=== PATIENT | female | born 1990 | race Caucasian/White ===

== ENCOUNTER 2021-12-01 16:49 | Emergency (ER) | payer MEDICAID, SELFPAY ==
[2021-12-01 16:50] VITALS: BP 140/92; PULSE 107; RESP 20; TEMP 36.6; O2SAT 96; BMI 36.3
--- NOTE | 2021-12-01 17:01 | CT_ITS ---
PROCEDURE INFORMATION: Exam: CTA Chest With Contrast Exam date and time: 12/01/2021 5:51 PM Age: 31 years old Clinical indication: Dyspnea; Additional info: Dyspnea HX of clots TECHNIQUE: Imaging protocol: Computed tomographic angiography of the chest with contrast. 3D rendering (Not supervised by radiologist): MIP and/or 3D reconstructed images were created by the technologist. Total images: 309 Radiation optimization: All CT scans at this facility use at least one of these dose optimization techniques: automated exposure control; mA and/or kV adjustment per patient size (includes targeted exams where dose is matched to clinical indication); or iterative reconstruction. Contrast material: ISOVUE 370; Contrast volume: 70 ml; Contrast route: INTRAVENOUS (IV); COMPARISON: No relevant prior studies available. FINDINGS: Pulmonary arteries: No large central pulmonary emboli were identified. Assessment of the segmental and subsegmental branches at multiple levels was nondiagnostic due to gross respiratory motion. Significant motion artifact also projects in the right main pulmonary artery distribution. Aorta: The aorta enhances appropriately without evidence of dissection or aneurysm. No mediastinal hematoma. Thyroid: The visualized thyroid gland demonstrates no gross abnormality. Lungs: No acute tracheobronchial abnormalities. No gross pulmonary infiltrates or edema pattern. Mild atelectasis in the lung bases. 3.5 mm juxtapleural pulmonary nodule in the anterolateral left upper lobe on series 5, image 39 without measurable calcification. 2.5 mm juxtapleural pulmonary nodule in the lateral lingula on image 66 without measurable calcification. If patient does not have known cancer, follow up should be based on clinical information because of the low risk of cancer in this age group. (Brooks et al., Fleischner Society, 2017). Pleural spaces: No pleural effusion. No pneumothorax. Heart: Heart size normal. 2.5 x 1.9 x 1.7 cm cyst at the rightward cardiophrenic angle demonstrating simple features, consistent with a developmental pericardial cyst. No signs of hemorrhage or superinfection. No pericardial effusion. Mediastinal space: The esophagus is largely contracted but demonstrates no gross abnormality. Lymph nodes: No supraclavicular or axillary adenopathy. No mediastinal or hilar adenopathy. Bones/joints: No acute osseous abnormalities are identified. Soft tissues: The soft tissues of the chest wall demonstrate no acute abnormality. Other findings: Visualized upper abdominal structures are unremarkable. IMPRESSION: 1. No large central pulmonary emboli are identified. Assessment of the peripheral segmental and subsegmental branch vessels at multiple levels was nondiagnostic due to gross respiratory motion. 2. No acute process is evident. 3. 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 4. There are 2 small pulmonary nodules present, largest is 3.5 mm. Please see recommendations above.
--- NOTE | 2021-12-01 17:09 | CA_ITS ---
PROCEDURE INFORMATION: Exam: US Duplex Right Lower Extremity Veins, Limited Exam date and time: 12/01/2021 5:31 PM Age: 31 years old Clinical indication: Pain; Leg, upper; Right; Additional info: Right leg pain, no trauma , HX of dvts and HX of pes TECHNIQUE: Imaging protocol: Real-time Duplex ultrasound of the Right Lower Extremity with 2-D hernadez scale, color Doppler flow and spectral waveform analysis with image documentation. Limited exam was focused on the right lower extremity veins. Total images: 122 COMPARISON: No relevant prior studies available. FINDINGS: Right deep veins: The right common femoral artery demonstrates color filling and venous waveforms with compressibility and no evidence of thrombosis. Limited femoral vein documentation. Transverse color Doppler images in the proximal segment demonstrate color filling in this region. Demonstration of compressibility was limited. The mid femoral vein segment demonstrates appropriate compressibility and color filling. The distal femoral vein segment documentation was limited. Popliteal vein documentation was limited. No technologist preliminary report was made available for correlation, however subsequent text messages to the technologist by operations it support technician Lu Mackenzie provided a preliminary tech report at 7:01 p.m. indicating that they felt that there was DVT present in the proximal popliteal vein. The cine transverse images are suspicious for incomplete compressibility in this segment. Right superficial veins: The greater saphenous vein demonstrates color filling with compressibility and no evidence of thrombosis. Soft tissues: Unremarkable. IMPRESSION: 1. Suspected nonocclusive short segment deep venous thrombosis in the superior popliteal vein distribution. 2. THIS REPORT CONTAINS FINDINGS THAT MAY BE CRITICAL TO PATIENT CARE. The findings were verbally communicated via telephone conference with Rhonda Snow at 8:17 PM EDT on 12/01/2021. The findings were acknowledged and understood.
--- NOTE | 2021-12-01 17:16 | HMH.EDGENADL ---
ED Disposition Clinical Impression: DVT (deep venous thrombosis) Disposition: Home, Self-Care Condition on Discharge: Good Instructions: Deep Vein Thrombosis Additional Instructions: Please follow-up with your primary care physician in 2 to 3 days for further management. Please take the apixiban as prescribed. You have been provided Dr. Corral's number for outpatient management please keep that appointment and she will need follow-up labs to monitor your coags. Please return for any concerning symptoms of bleeding, chest pain, difficulty breathing or any other concerning symptoms. Prescriptions: Apixaban [Eliquis] 10 mg PO BID #60 tab Apixaban [Eliquis] 5 mg PO BID #60 tab Prescription Printed Referrals: Provider,Referral, [Primary Care Provider] - - Critical Care Critical Care Time: No Attestation: On 12/01/21, the high probability of a clinically significant, sudden or life threatening deterioration of the following system(s) required my full and direct attention, intervention and personal management. The time I documented below is in addition to time spent performing reported procedures but includes the following listed in this critical care notation. Medical Decision Making - Medical Records Medical records reviewed: Yes: I reviewed the patient's medical records. - Vinny Inquiry Pt receiving controlled substance: No Vital Signs: 12/01/21 16:50 12/01/21 17:30 12/01/21 20:23 Temperature 98 F 98.0 F Temperature Source Oral Oral Pulse Rate 102 H 75 Pulse Rate [Radial] 107 H Respiratory Rate 20 20 20 Blood Pressure 148/78 H 130/77 Blood Pressure [Right Arm] 140/92 H Blood Pressure Mean [Right Arm] 108 Blood Pressure Position Sitting Blood Pressure Position [Right Arm] Sitting 02 Sat by Pulse Oximetry 96 96 Oxygen Delivery Method Room Air Room Air Room Air - Lab Data Lab results reviewed: Yes: I reviewed the patient's lab results. Lab Results 12/01/21 17:23: WBC 10.3, RBC 4.67, Hgb 15.5, Hct 46.1, MCV 98.8, MCH 33.2 H, MCHC 33.6, RDW 12.9, Plt Count 308, MPV 7.7, Neut % (Auto) 56.6, Lymph % (Auto) 34.9, [place] % (Auto) 4.0, Eos % (Auto) 3.5, Baso % (Auto) 0.8, Neut # (Auto) 5.8, Lymph # (Auto) 3.6, [place] # (Auto) 0.4, Eos # (Auto) 0.4, Baso # (Auto) 0.1 12/01/21 17:23: PT 12.5, INR 1.12 H 12/01/21 17:23: Sodium 139, Potassium 4.0, Chloride 106, Carbon Dioxide 28, Anion Gap 9.0, BUN 5 L, Creatinine 0.80, Estimated Creat Clear 201, Estimated GFR 84, Est GFR ( Amer) 101, Glucose 98, Calcium 8.7, Total Bilirubin 0.5, AST 20, ALT 12, Alkaline Phosphatase 54, Total Protein 7.2, Albumin 4.1, Globulin 3.1, Albumin/Globulin Ratio 1.3 12/01/21 17:23: Serum HCG, Qual Negative 12/01/21 17:23: APTT 28.1 Result diagrams: 12/01/21 17:23 12/01/21 17:23 Orders (Tests/Meds): ED MEDICATIONS Discontinued Medications Generic Name Dose Route Start Last Admin Trade Name Freq PRN Reason Stop Dose Admin Apixaban 5 mg 12/01/21 21:00 12/01/21 20:40 Apixaban 5mg Tablet PO 12/31/21 20:59 Not Given BID LOUIS Apixaban 10 mg 12/01/21 20:45 12/01/21 20:41 Apixaban 5mg Tablet PO 12/31/21 20:44 10 mg BID LOUIS Administration Iopamidol 70 ml 12/01/21 17:54 12/01/21 17:55 Iopamidol-370 (76%);100ml Bottle IV 12/01/21 17:55 70 ml ONCE ONE Administration Sodium Chloride 40 ml 12/01/21 17:54 12/01/21 17:54 0.9 % Sodium Chloride 50 Ml Vial IV 12/01/21 17:55 40 ml ONCE ONE Administration Sodium Chloride 10 ml 12/01/21 17:54 12/01/21 17:54 Sodium Chloride 0.9% 10ml Syr (Rad Only) IV 12/01/21 17:55 10 ml ONCE ONE Administration Medical Decision Narrative: Mrs. Aleman is a 31-year-old female with past medical history for DVTs, IVC filter, who presents to the emergency department with right leg pain for the last few days. Patient is neurovascularly intact on arrival and hemodynamically stable. Physical exam remarkable for well-appearing female
[2021-12-01 17:30] VITALS: BP 148/78; PULSE 102; RESP 20; O2SAT 96
[2021-12-01 17:33] LABS: Basophils # 0.1 K/mm3 (0-0.2); Basophils % 0.8 % (0.1-2.0); Eosinophils # 0.4 K/mm3 (0.0-0.4); Eosinophils % 3.5 % (0.1-12.0); Hematocrit 46.1 % (37.0-47.0); Hemoglobin 15.5 g/dL (12.2-16.2); Lymphocytes # 3.6 K/mm3 (0.7-4.5); Lymphocytes % 34.9 % (10-50); Mean Corpuscular HGB Conc 33.6 g/dL (31.8-35.4); Mean Corpuscular Hemoglobin 33.2 pg (27.0-31.2); Mean Corpuscular Volume 98.8 fl (81-99); Mean Platelet Volume 7.7 fl (7.4-10.4); Monocytes # 0.4 K/mm3 (0.1-1.0); Neutrophils # 5.8 K/mm3 (1.8-7.8); Neutrophils % 56.6 % (37.0-80.0); Platelet Count 308 K/mm3 (142-424); Red Blood Count 4.67 M/mm3 (4.20-5.40); Red Cell Distribution Width 12.9 % (11.5-17.5); White Blood Count 10.3 K/mm3 (4.8-10.8)
[2021-12-01 17:42] LABS: HCG Qualitative, Serum Negative (Negative)
[2021-12-01 17:44] LABS: INR 1.12 (0.9-1.1); Prothrombin Time 12.5 seconds (10.1-12.5)
[2021-12-01 17:46] LABS: Alanine Aminotransferase 12 U/L (12-78); Albumin Level 4.1 g/dl (3.5-5.0); Albumin/Globulin Ratio 1.3 (1.1-1.8); Alkaline Phosphatase 54 U/L (38-126); Aspartate Amino Transferase 20 U/L (14-36); Bilirubin,Total 0.5 mg/dl (0.2-1.3); Blood Urea Nitrogen 5 mg/dl (7-17); Calcium 8.7 mg/dl (8.4-10.2); Carbon Dioxide 28 mmol/L (22.0-30.0); Chloride 106 mmol/L (98-107); Creatinine Clearance Estimated 201 mL/min (50-200); Estimated Glomerular Filt Rate 84 ml/min (>60); GFR (African American) 101 ML/MIN (>60); Globulin 3.1 g/dL (1.3-3.2); Glucose 98 mg/dl (74-100); Sodium 139 mmol/L (136-145); Total Protein,Serum 7.2 g/dl (6.3-8.2)
--- NOTE | 2021-12-01 17:47 | PC.NURSE ---
vascular was here for doppler study
[2021-12-01 18:12] LABS: Activated Partial Thrombo Time 28.1 seconds (22.8-30.6)
--- NOTE | 2021-12-01 19:29 | PC.NURSE ---
MD Snow unable to received a stat read on u/s. Paged (on-call for service).
--- NOTE | 2021-12-01 19:32 | PC.NURSE ---
Dr. Snow s/w Dr. Corral
--- NOTE | 2021-12-01 20:16 | PC.NURSE ---
Dr. Snow s/w AD
[2021-12-01 20:23] VITALS: BP 130/77; PULSE 75; RESP 20; TEMP 36.7; O2SAT 98
== END 2021-12-01 20:42 | disposition home or self-care (01) ==
PROVIDERS: Emergency Provider Student in an Organized Health Care Education/Training Program
DX: I82.431 Acute embolism and thrombosis of right popliteal vein (principal); Z79.01 Long term (current) use of anticoagulants
CPT/HCPCS: 71275; 80053; 84703; 85025; 85610; 85730; 93971; 99284; Q9967

== ENCOUNTER 2023-03-10 09:40 | Emergency (ER) | payer MEDICAID, SELFPAY ==
[2023-03-10 09:41] VITALS: BP 139/79; PULSE 83; RESP 18; TEMP 36.7; O2SAT 98; BMI 36.3
[2023-03-10 09:44] VITALS: BP 139/79; PULSE 85; O2SAT 98
--- NOTE | 2023-03-10 09:48 | PC.NURSE ---
ER MD aviles at
--- NOTE | 2023-03-10 09:51 | XR_ITS ---
FINAL REPORT CLINICAL HISTORY: Shortness of breath, cough , h/o P.E., pt is a smoker COMPARISON: None FINDINGS: A single portable view of the chest was obtained. The heart size and pulmonary vascularity are within normal limits. The mediastinum is within normal limits. No acute pulmonary abnormality is identified. The bony thorax is intact. IMPRESSION: No active cardiopulmonary disease. Reviewed, Interpreted and Dictated by Helio Harris III, MD Transcribed by Nellie Gutierrez Authenticated and [facility]
--- NOTE | 2023-03-10 09:52 | HMH.EDGENADL ---
Discharge Plan Disposition Patient Disposition: Home, Self-Care Prescriptions Prescriptions: New azithromycin 500 mg tablet 500 mg PO DAILY Qty: 3 0RF methylprednisolone [Medrol (Ayan)] 4 mg tablets,dose pack 4 mg PO DAILY 7 Days Qty: 21 0RF No Action apixaban 5 MG tablet 10 mg PO BID Qty: 60 0RF Rx Instructions: Please take 10mg PO twice a day apixaban 5 MG tablet 5 mg PO BID Qty: 60 2RF Rx Instructions: Please take 10mg twice a day for 7 days and then 5mg twice a day until you follow up with your primary care team. Referrals Follow up/Referrals: Provider,Referral, [Primary Care Provider] - See instructions Activity Restrictions/Add. Instructions Additional Instructions/Restrictions: Return for worsening pain difficulty breathing or any other concerns within the next 8 hours otherwise follow-up with your primary care physician within the next few day Clinical Impressions Clinical Impression: Bronchitis Discharge ED Provider: Randall Toribio General Adult HPI General Chief complaint: Upper Respiratory Infection Stated complaint: Chest congestion, possible sun poisoning, cough Time Seen by Provider: 03/10/23 09:40 History of Present Illness HPI narrative: 32-year-old female presents with sunburn and cough. She says that she has been to [place] and got a sunburn down there. She does not have any headache or vomiting. No chest pain or shortness of air. No abdominal pain. Does that she has chest congestion and has been using her inhaler. She has history of blood clots however is not on a blood thinner at this time because she was told by plastic molder she is not at risk anymore because she has had her tubes tied and her DVTs were hormone related. She has mild cough and congestion as well for the last few days. Related Data Previous Rx's Medication Instructions Recorded apixaban 5 mg tablet 5 mg PO BID #60 tabs 12/01/21 apixaban 5 mg tablet 10 mg PO BID #60 tabs 12/01/21 azithromycin 500 mg tablet 500 mg PO DAILY #3 tabs 03/10/23 methylprednisolone 4 mg tablets in 4 mg PO DAILY 7 days #21 tabs 03/10/23 a dose pack (Medrol (Ayan)) Allergies Allergy/AdvReac Type Severity Reaction Status Date / Time INGREDIENT: NO KNOWN - NO Allergy Unknown Uncoded 08/15/17 15:26 KNOWN DRUG ALLERGY [facility] Disclaimer: The information contained in this section may have been updated after the patient was seen, as this information can be updated by other users. Social History Smoking Status: Current every day smoker alcohol intake: never current occupational status: employed Travel in the last 8 weeks: Inside the [place] ROS Obtained: Yes All systems reviewed & no additional complaints except as documented Constitutional Constitutional: Denies fatigue, Denies fever(s) and Denies headache(s) Eyes Eyes: Denies dry eyes ENT Ears, Nose, Mouth, and Throat: Denies headache(s) and Denies neck pain Cardiovascular Cardiovascular: Denies dyspnea Respiratory Respiratory: Denies dyspnea Gastrointestinal Gastrointestingal: Denies coffee ground emesis Genitourinary Female Genitourinary: Denies hematuria Musculoskeletal Musculoskeletal: Denies joint swelling and Denies neck pain Integumentary/Breasts Skin/Breast: Denies rash Neurologic Neurologic: Denies headache(s) Endocrine Endocrine: Denies fatigue Hematologic/Lymphatic Henatologic/Lymphatic: Denies easy bleeding Allergic/Immunologic Allergic/Immunologic: Denies urticaria Physical Exam General General appearance: alert and in no apparent distress Eye Eye exam: Present PERRL and EOMI ENT ENT exam: Present normal exam and normal oropharynx Neck Neck exam: Present normal inspection Chest Chest inspection: Present symmetric chest wall rise Respiratory Respiratory exam: Present other (Wheezing bilaterally); Absent respiratory distress Cardiovascular Cardiovascular exam: Present regular rate and normal rhyt
[2023-03-10 09:53] LABS: Coronavirus 19, PCR Not Detected (NotDetected); Influenza A, PCR Not Detected (NotDetected); Influenza B, PCR Not Detected (NotDetected)
[2023-03-10 10:01] VITALS: BP 119/71; PULSE 81; O2SAT 97
--- NOTE | 2023-03-10 10:02 | PC.NURSE ---
rad at BS for portable xray
[2023-03-10 10:23] LABS: Basophils # 0.1 K/mm3 (0-0.2); Basophils % 0.7 % (0.1-2.0); Eosinophils # 0.4 K/mm3 (0.0-0.4); Eosinophils % 4.4 % (0.1-12.0); Hematocrit 46.3 % (37.0-47.0); Hemoglobin 15.2 g/dL (12.2-16.2); Lymphocytes % 36.4 % (10-50); Mean Corpuscular HGB Conc 32.9 g/dL (31.8-35.4); Mean Corpuscular Hemoglobin 31.5 pg (27.0-31.2); Mean Corpuscular Volume 95.8 fl (81-99); Mean Platelet Volume 7.6 fl (7.4-10.4); Monocytes # 0.4 K/mm3 (0.1-1.0); Monocytes % 4.6 % (1.7-9.3); Neutrophils # 4.5 K/mm3 (1.8-7.8); Neutrophils % 53.9 % (37.0-80.0); Platelet Count 244 K/mm3 (142-424); Red Blood Count 4.83 M/mm3 (4.20-5.40); Red Cell Distribution Width 13.1 % (11.5-17.5); White Blood Count 8.3 K/mm3 (4.8-10.8)
[2023-03-10 10:35] VITALS: PULSE 74; O2SAT 97
[2023-03-10 10:35] LABS: Alanine Aminotransferase 20 U/L (12-78); Albumin Level 3.9 g/dl (3.5-5.0); Albumin/Globulin Ratio 1.2 (1.1-1.8); Alkaline Phosphatase 55 U/L (38-126); Anion Gap 8.2 mEq/L (5-15); Aspartate Amino Transferase 26 U/L (14-36); Bilirubin,Total 0.4 mg/dl (0.2-1.3); Blood Urea Nitrogen 12 mg/dl (7-17); Calcium 8.6 mg/dl (8.4-10.2); Carbon Dioxide 27 mmol/L (22.0-30.0); Chloride 106 mmol/L (98-107); Creatinine Clearance Estimated 227 mL/min (50-200); Estimated Glomerular Filt Rate 97 ml/min (>60); GFR (African American) 117 ML/MIN (>60); Globulin 3.2 g/dL (1.3-3.2); Glucose 115 mg/dl (74-100); Potassium 4.2 mmoL/L (3.5-5.1); Sodium 137 mmol/L (136-145); Total Protein,Serum 7.1 g/dl (6.3-8.2)
[2023-03-10 10:39] LABS: D-Dimer 0.85 ug/mL (0.0-0.5)
[2023-03-10 10:51] LABS: Troponin I < 0.01 ng/ml (0.00-0.034)
--- NOTE | 2023-03-10 10:53 | CT_ITS ---
FINAL REPORT CLINICAL HISTORY: PTE protocol, c/o c.p., cough COMPARISON: 12/01/2021 FINDINGS: Thin section axial CT images of the chest were obtained with contrast. 3D reformatted images were also obtained. This study was performed with techniques to keep radiation doses as low as reasonably achievable (ALARA). Individualized dose reduction techniques using automated exposure control or adjustment of mA and/or kV according to the patient's size were employed. There is no evidence of pulmonary embolism. There is no evidence of thoracic aortic aneurysm or dissection. There is no evidence of mediastinal or hilar mass or adenopathy. There is a 20 mm cystic mass in the right cardiophrenic angle, likely a pericardial cyst. There is a right lower lobe nodule measuring 6 mm, stable than previous. This is best seen on image 53. No new mass or nodule is identified. No localized inflammatory process is seen within the lungs. Limited images of the upper abdomen are unremarkable. IMPRESSION: No evidence of pulmonary embolism. 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 Stable right lower lobe nodule. Reviewed, Interpreted and Dictated by Helio Harris III, MD Transcribed by Mae Ramires Authenticated and [facility]
--- NOTE | 2023-03-10 11:11 | PC.NURSE ---
pt ambulatory to restroom without complications
--- NOTE | 2023-03-10 11:20 | PC.NURSE ---
pt to CT via wheelchair
[2023-03-10 11:24] LABS: Microscopic, Urine URINE MICROSCOPIC (MICROSCOPIC)
[2023-03-10 11:34] LABS: Appearance,Urine CLEAR (Clear); Bilirubin,Urine Negative (Negative); Blood, Urine Negative (Negative); Color,Urine YELLOW (Yellow); Glucose,Urine (UA) Negative (Negative); Ketones,Urine Negative (Negative); Leukocyte Esterase,Urine Negative (Negative); Nitrate,Urine Negative (Negative); Protein,Urine Negative (Negative); Specific Gravity, Urine <= 1.005 (1.005-1.030); Urobilinogen,Urine 0.2 EU/dl (0.2)
[2023-03-10 12:00] LABS: Bacteria,Urine Trace /lpf; Squamous Epithelial Cell,Urine Occasional #/hpf (0-5); WBC,Urine Occasional #/hpf (0-3)
[2023-03-10 12:01] LABS: HCG Qualitative, Serum Negative (Negative)
--- NOTE | 2023-03-10 12:30 | PC.NURSE ---
contacted rad to check on status of CT results-states a preliminary result is available and will send it down
--- NOTE | 2023-03-10 12:37 | PC.NURSE ---
Md notified of patient's current pain and vomiting.
--- NOTE | 2023-03-10 12:38 | PC.NURSE ---
patient assisted to bathroom and lunch tray ordered
--- NOTE | 2023-03-10 13:08 | PC.NURSE ---
Rounded on patient. Pt requesting food. Okay by . Diet tray ordered. [place] provided at her request.
[2023-03-10 13:52] VITALS: BP 129/77; PULSE 67; RESP 18; TEMP 36.6; O2SAT 97
== END 2023-03-10 13:55 | disposition home or self-care (01) ==
PROVIDERS: Emergency Provider Emergency Medicine
DX: J40 Bronchitis, not specified as acute or chronic (principal); R06.2 Wheezing; F17.200 Nicotine dependence, unspecified, uncomplicated
CPT/HCPCS: 71045; 71275; 80053; 81001; 84484; 84703; 85025; 85378; 87636; 96361; 96374; 99284; 99285; Q9966; Q9967

== ENCOUNTER 2024-02-11 12:57 | Emergency (ER) | payer MEDICAID, SELFPAY ==
[2024-02-11 12:58] VITALS: BP 151/106; PULSE 105; RESP 22; TEMP 37; O2SAT 96; BMI 42.2
--- NOTE | 2024-02-11 13:18 | ECG_ITS ---
APPROVED REPORT Exam: Resting ECG HR:95 bpm ECG Measurements Heart Rate 95 AXES GA 150 P 54 QRSd 92 QRS 65 QT 357 T 43 QTc 410 Conclusion SINUS RHYTHM NORMAL ECG Electronically signed by : JERZY ESTRADA, 02/12/2024 15:46:41
[2024-02-11 13:31] VITALS: BP 153/97; PULSE 98; O2SAT 94
--- NOTE | 2024-02-11 13:34 | XR_ITS ---
PROCEDURE INFORMATION: Exam: XR Chest Exam date and time: 02/11/2024 1:35 PM Age: 33 years old Clinical indication: Cough TECHNIQUE: Imaging protocol: Radiologic exam of the chest. Views: 2 views. COMPARISON: CT ANGIO CHEST PE PROTOCOL 03/10/2023 11:25 AM FINDINGS: Lungs: Unremarkable. No consolidation. Pleural spaces: Unremarkable. No pleural effusion. No pneumothorax. Heart/Mediastinum: Unremarkable. No cardiomegaly. Bones/joints: Unremarkable. IMPRESSION: No acute findings.
--- NOTE | 2024-02-11 13:36 | [facility]H.EDCP ---
Discharge Plan Disposition Patient Disposition: Home, Self-Care Prescriptions Prescriptions: New albuterol sulfate 90 mcg/actuation HFA aerosol inhaler 3 inh inhalation Q4H PRN (Reason: shortness of breath or wheezing) Qty: 6.7 0RF wvacpqquzyojdac-jarxchnor-TB [Bromfed DM] 2-30-10 mg/5 mL syrup 5 ml PO Q6H PRN (Reason: cold symptoms) Qty: 118 0RF prednisone 50 mg tablet 50 mg PO DAILY 3 Days Qty: 3 0RF No Action losartan-hydrochlorothiazide 50-12.5 mg tablet 1 tab PO DAILY Referrals Follow up/Referrals: Oksana Clark APRN [Primary Care Provider] - See instructions Activity Restrictions/Add. Instructions Additional Instructions/Restrictions: At this time it was felt you are safe to be discharged home. If new or worsening symptoms please do not hesitate to return the emergency department. Please take your medications as prescribed. Clinical Impressions Clinical Impression: Viral respiratory infection, Wheezing Discharge ED Provider: Dieter Garcia [facility] General Chief Complaint: Shortness of Breath/Dyspnea Stated Complaint: SOA, cough, scratchy throat Time Seen by Provider: 02/11/24 13:00 Mode of Arrival: Ambulatory Source of Information: Patient Limitations: No Limitations Description of Symptoms (Recalled from ER Triage Doc. by RN): pt states she is short of air due to her nose being clogged and has a scratchy throat and cough for the last week, pt has hx of blood clots with . 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 Onset was acute, over the last week, patient has had runny nose, scratchy throat, shortness of breath and cough. No chest pain. No asymmetric leg swelling. She was started on cetirizine and Tessalon Perles for which her symptoms have been refractory. No other acute complaints at this time. Related Data Home Medications Medication Instructions Recorded Confirmed losartan 50 mg-hydrochlorothiazide 1 tab PO DAILY 02/11/24 02/11/24 12.5 mg tablet Previous Rx's Medication Instructions Recorded albuterol sulfate 90 mcg/actuation 3 inh inhalation Q4H PRN shortness 02/11/24 aerosol inhaler of breath or wheezing #6.7 grams vwaznroixblfvme-rmsnkmdtckhwgfr-CP 5 ml PO Q6H PRN cold symptoms #118 02/11/24 2 mg-30 mg-10 mg/5 mL oral syrup mL (Bromfed DM) prednisone 50 mg tablet 50 mg PO DAILY 3 days #3 tabs 02/11/24 Allergies Allergy/AdvReac Type Severity Reaction Status Date / Time Iodinated Contrast Media Allergy Verified 02/11/24 13:15 [facility] Disclaimer: The information contained in this section may have been updated after the patient was seen, as this information can be updated by other users. Social History (Updated 03/10/23 @ 13:15 by Randall Toribio MD) Smoking Status: Current every day smoker alcohol intake: never current occupational status: employed Travel in the last 8 weeks: Inside the [place] ROS Obtained: Yes Systems reviewed as appropriate & no additional complaints except as documented Physical Exam General General appearance: alert and in no apparent distress Head Head exam: atraumatic and normocephalic Eye Eye exam: Present PERRL ENT ENT exam: Present mucous membranes moist Neck Neck exam: Present normal inspection Chest Chest inspection: Present normal inspection and symmetric chest wall rise Respiratory Respiratory exam: Present wheezes (Scant wheezing bilaterally); Absent respiratory distress Cardiovascular Cardiovascular exam: Present regular rate and normal rhythm Abdominal Exam Abdominal exam: Present soft; Absent tenderness Extremities Exam Extremities exam: Present normal inspection Neurological Exam Neurological exam: Present alert Psychiatric Psychiatric exam: Present normal affect Skin Skin exam: Present warm and dry HEART Score HEART Score HEART Score assessment performed?: No Critical Care Critical Care Time Critical Care Time: No Medical Decision Making Vinny Inquiry Pt receiving controlled substance: No Vital Signs Vital Signs: 02/11/24 12:58 02/11/24 13:31 02/11/24 14:06 Temperature 98.6 F Temperature Source Oral Pulse Rate 98 H 90 Pulse Rate [Right Radial] 105 H Respiratory Rate 22 Blood Pressure 153/97 H 140/90 Blood Pressure [Right Arm] 151/106 H Blood Pressure Mean [Right Arm] 121 02 Sat by Pulse Oximetry 96 94 L 98 Oxygen Delivery Method Room Air Room Air Room Air Lab Data Labs: Lab Results 02/11/24 13:10: WBC 12.6 H, RBC 4.71, Hgb 15.3, Hct 46.4, MCV 98.4, MCH 32.5 H, MCHC 33.0, RDW 13.6, Plt Count 272, MPV 7.7, Neut % (Auto) 71.5, Lymph % (Auto) 20.5, Braxton % (Auto) 5.2, Eos % (Auto) 2.1, Baso % (Auto) 0.8, Neut # (Auto) 9.0 H, Lymph # (Auto) 2.6, Braxton # (Auto) 0.7, Eos # (Auto) 0.3, Baso # (Auto) 0.1, Sodium 138, Potassium 3.6, Chloride 102, Carbon Dioxide 30, Anion Gap 9.6, BUN 7, Creatinine 0.90, Estimated Creat Clear 106, Estimated GFR 72, Est GFR ( Amer) 87, Glucose 125 H, Calcium 9.3, Total Bilirubin 0.5, AST 26, ALT 17, Alkaline Phosphatase 71, Total Protein 7.9, Albumin 4.1, Globulin 3.8 H, Albumin/Globulin Ratio 1.1 02/11/24 13:10 02/11/24 13:10 Response Orders (Tests/Meds): ED MEDICATIONS Discontinued Medications Generic Name Dose Route Start Last Admin Trade Name Freq PRN Reason Stop Dose Admin Albuterol/Ipratropium 3 ml 02/11/24 13:36 02/11/24 13:37 Ipratropium/Albuterol 3 Ml Neb IH 02/11/24 13:37 3 ml ONCE ONE Administration Methylprednisolone Sodium Succinate 125 mg 02/11/24 13:34 02/11/24 13:37 Methylprednisolone Sod Succ 125mg Vial IV 02/11/24 13:35 125 mg ONCE ONE Administration ORDERS Category Date Time Status CXR 2 view (NOT portable) [XR chest 2V] Stat Exams 02/11/24 13:34 Taken CBC w/Auto Diff [Complete Blood Count Auto Diff] Stat Lab 02/11/24 13:10 Completed CMP [Comprehensive Metabolic Panel] Stat Lab 02/11/24 13:10 Completed ECG Data Tracing #1: ECG Narrative: Independently interpreted by me, rate is 95, rhythm is regular, axis is normal, no ST elevation in anatomical contiguous leads, QTc 410. MDM Narrative Medical Decision Narrative: In summary patient is a 33-year-old female with past medical history described above who presents emergency department for evaluation of shortness of breath and cough. Patient is hemodynamically stable nontoxic-appearing upon arrival, afebrile. No concern for pulmonary embolism as patient has indwelling filter and previous pulmonary embolism was provoked anyways. No chest pain. Differential includes pneumonia versus viral respiratory infection. Workup will be conducted with hematologic labs, chest x-ray. Initial inventions include DuoNeb, methylprednisolone. Workup reviewed by me, hematologic labs are nonactionable, slight leukocytosis, no SAMANTHA or critical electrolyte abnormality. Chest x-ray informally interpreted by me, no dense lobar opacities or large pneumothorax. On repeat evaluation patient had large resolution of symptoms with persistent cough for which patient will be given lidocaine neb for symptomatic treatment. Upon repeat evaluation patient continued to be well-appearing. Given this patient is appropriate for discharge at this time will be discharged with a course of steroids, XOCHITL Shah for wheezing and was given return precautions.
[2024-02-11] MEDS: IPRATROPIUM/ALBUTEROL 3 ML NEB IH (13:37)
[2024-02-11] MEDS: METHYLPREDNISOLONE SOD SUCC 125MG VIAL 125 MG IV (13:37)
[2024-02-11 13:44] LABS: Chloride 102 mmol/L (98-107); Sodium 138 mmol/L (136-145)
[2024-02-11 13:45] LABS: Potassium 3.6 mmoL/L (3.5-5.1)
[2024-02-11 13:47] LABS: Alanine Aminotransferase 17 U/L (12-78); Albumin Level 4.1 g/dl (3.5-5.0); Albumin/Globulin Ratio 1.1 (1.1-1.8); Alkaline Phosphatase 71 U/L (38-126); Anion Gap 9.6 mEq/L (5-15); Aspartate Amino Transferase 26 U/L (14-36); Bilirubin,Total 0.5 mg/dl (0.2-1.3); Blood Urea Nitrogen 7 mg/dl (7-17); Carbon Dioxide 30 mmol/L (22.0-30.0); Creatinine Clearance Estimated 106 mL/min (50-200); Estimated Glomerular Filt Rate 72 ml/min (>60); GFR (African American) 87 ML/MIN (>60); Globulin 3.8 g/dL (1.3-3.2); Total Protein,Serum 7.9 g/dl (6.3-8.2)
--- NOTE | 2024-02-11 13:47 | PC.NURSE ---
pt returned from ct
--- NOTE | 2024-02-11 13:47 | PC.NURSE ---
Pt returned from XRAY
[2024-02-11 13:48] LABS: Calcium 9.3 mg/dl (8.4-10.2); Glucose 125 mg/dl (74-100)
[2024-02-11 13:50] LABS: Basophils # 0.1 K/mm3 (0-0.2); Basophils % 0.8 % (0.1-2.0); Eosinophils # 0.3 K/mm3 (0.0-0.4); Eosinophils % 2.1 % (0.1-12.0); Hematocrit 46.4 % (37.0-47.0); Hemoglobin 15.3 g/dL (12.2-16.2); Lymphocytes # 2.6 K/mm3 (0.7-4.5); Lymphocytes % 20.5 % (10-50); Mean Corpuscular Hemoglobin 32.5 pg (27.0-31.2); Mean Corpuscular Volume 98.4 fl (81-99); Mean Platelet Volume 7.7 fl (7.4-10.4); Monocytes # 0.7 K/mm3 (0.1-1.0); Monocytes % 5.2 % (1.7-9.3); Neutrophils % 71.5 % (37.0-80.0); Platelet Count 272 K/mm3 (142-424); Red Blood Count 4.71 M/mm3 (4.20-5.40); Red Cell Distribution Width 13.6 % (11.5-17.5); White Blood Count 12.6 K/mm3 (4.8-10.8)
[2024-02-11 14:06] VITALS: BP 140/90; PULSE 90; O2SAT 98
--- NOTE | 2024-02-11 14:27 | PC.NURSE ---
Rounded on pt. No needs voiced at this time. Call light within reach.
--- NOTE | 2024-02-11 14:27 | PC.NURSE ---
Notified respiratory of lidocaine neb treatment
[2024-02-11] MEDS: LIDOCAINE 2% 5ML PF VIAL 5 ML IH (14:36)
[2024-02-11 14:51] VITALS: BP 150/93; PULSE 81; RESP 18; TEMP 36.7; O2SAT 95
== END 2024-02-11 14:59 | disposition home or self-care (01) ==
PROVIDERS: Emergency Provider Emergency Medicine; PCP Nurse Practitioner
DX: R06.2 Wheezing (principal); R06.02 Shortness of breath; R05.9 Cough, unspecified; R07.0 Pain in throat; J06.9 Acute upper respiratory infection, unspecified; B34.9 Viral infection, unspecified; F17.210 Nicotine dependence, cigarettes, uncomplicated
CPT/HCPCS: 71046; 80053; 85025; 93005; 96374; 99284; J2930; J7620

== ENCOUNTER 2024-06-03 11:11 | Emergency (ER) | payer MEDICAID, SELFPAY ==
[2024-06-03] VITALS (7 sets, daily range): BP systolic 132–166; BP diastolic 88–97; PULSE 63–84; RESP 16–18; TEMP 36.8–37.1; O2SAT 93–97; BMI 43.4
--- NOTE | 2024-06-03 11:10 | ECG_ITS ---
APPROVED REPORT Exam: Resting ECG HR:88 bpm ECG Measurements Heart Rate 88 AXES LA 160 P 56 QRSd 92 QRS 86 QT 369 T 63 QTc 414 Conclusion Sinus rhythm Electronically signed by : NANY RODRIGUEZ, 06/06/2024 14:54:08
--- NOTE | 2024-06-03 11:29 | CT_ITS ---
FINAL REPORT TECHNIQUE: Then section axial CT images of the chest were obtained with contrast. Three-D reformatted images were also obtained.This study was performed with techniques to keep radiation doses as low as reasonably achievable (ALARA). Individualized dose reduction techniques using automated exposure control or adjustment of mA and/or kV according to the patient's size were employed. CLINICAL HISTORY: PE suspected COMPARISON: Prior CTA of the chest 03/10/2023 FINDINGS: There is motion on many sequences which somewhat limits overall image quality. There is no evidence of pulmonary embolism. There is no evidence of thoracic aortic aneurysm or dissection. There is an 18 mm mass in the right cardiophrenic angle, stable, likely a pericardial cyst or adenopathy. There is no evidence of mediastinal or hilar mass or adenopathy. There is a 6 mm right lower lobe nodule best seen on image #40 of series 3, which is stable when compared with the prior exam. A calcified granuloma is present in the left lower lobe. No localized inflammatory process is seen within the lungs. Limited images of the upper abdomen are unremarkable. IMPRESSION: No evidence of pulmonary embolism. No mass or localized inflammatory process. Millimeter right lower lobe nodule, stable when compared to the prior exam of 03/10/2023. Reviewed, Interpreted and Dictated by Helio Harris III, MD Transcribed by Ana M Granda Authenticated and . [facility]
--- NOTE | 2024-06-03 11:32 | ED_ITS ---
Discharge Plan Disposition Patient Disposition: Home, Self-Care Prescriptions Prescriptions: New albuterol sulfate [Proventil HFA] 90 mcg/actuation HFA aerosol inhaler 2 inh inhalation Q6H PRN (Reason: shortness of breath or wheezing) Qty: 8.5 0RF prednisone 50 mg tablet 50 mg PO DAILY 5 Days Qty: 5 0RF No Action losartan-hydrochlorothiazide 50-12.5 mg tablet 1 tab PO DAILY albuterol sulfate 90 mcg/actuation HFA aerosol inhaler 3 inh inhalation Q4H PRN (Reason: shortness of breath or wheezing) Qty: 6.7 0RF dzrkngnxzdsdeyh-jravukvxt-KD [Bromfed DM] 2-30-10 mg/5 mL syrup 5 ml PO Q6H PRN (Reason: cold symptoms) Qty: 118 0RF prednisone 50 mg tablet 50 mg PO DAILY 3 Days Qty: 3 0RF Referrals Follow up/Referrals: Provider,Referral, MD [Referring] - See instructions Activity Restrictions/Add. Instructions Additional Instructions/Restrictions: Take steroids as prescribed and use albuterol as needed. Follow-up with primary care doctor. Please return the emerged part with any new, concerning, or worsening symptoms. Clinical Impressions Clinical Impression: Chest pain Qualifiers: Chest pain type: unspecified Qualified Code(s): R07.9 - Chest pain, unspecified Print Language Print Language: Qatari Discharge ED Provider: Enrique Tucker General Adult HPI General Chief complaint: Chest Pain Stated complaint: Chest Pain Time Seen by Provider: 06/03/24 11:13 Mode of Arrival: Ambulatory Source of Information: Patient Limitations: No Limitations Description of Symptoms (Recalled from ER Triage Doc. by RN): PT TO THE ED WITH INTERMITTEN CHEST PAIN X 1 WEEK. PT REPORTS SHE WAS EXPOSED TO THE FLU LAST WEEK AND HAD SOME CONGESTION BUT IS NOW EXPERIENCING SOB AND CHEST PAIN ON BOTH SIDES OF HER CHEST. PT HAS A HX OF MULTIPLE PES AND AN IVC FILTER IN HER RIGHT REMORAL ARTERY. History of Present Illness HPI narrative: This is a 33-year-old female with a history of prior pulmonary emboli status post IVC filter placement in 2011, not currently on any anticoagulation, who presents with chest pain that began last night. States chest pain is diffuse, worse with expiration, and she believes that she has another pulmonary embolism. Reports associated shortness of breath. States that she is not currently on any anticoagulation right now she was told that her prior blood clots were provoked in the setting of . IVC filter placed during her previous . Related Data Home Medications ?Medication ?Instructions ?Recorded ?Confirmed losartan 50 mg-hydrochlorothiazide 1 tab PO DAILY 02/11/24 02/11/24 12.5 mg tablet Previous Rx's ?Medication ?Instructions ?Recorded albuterol sulfate 90 mcg/actuation 3 inh inhalation Q4H PRN shortness 02/11/24 aerosol inhaler of breath or wheezing #6.7 grams bacjgwbuvsiffdr-rnuealzzshwwoxb-JZ 5 ml PO Q6H PRN cold symptoms #118 02/11/24 2 mg-30 mg-10 mg/5 mL oral syrup mL (Bromfed DM) prednisone 50 mg tablet 50 mg PO DAILY 3 days #3 tabs 02/11/24 albuterol sulfate 90 mcg/actuation 2 inh inhalation Q6H PRN shortness 06/03/24 aerosol inhaler (Proventil HFA) of breath or wheezing #8.5 grams prednisone 50 mg tablet 50 mg PO DAILY 5 days #5 tabs 06/03/24 Allergies Allergy/AdvReac Type Severity Reaction Status Date / Time Iodinated Contrast Media AdvReac Mild Cough Verified 06/03/24 11:35 [facility] Disclaimer: The information contained in this section may have been updated after the patient was seen, as this information can be updated by other users. Social History (Updated 03/10/23 @ 13:15 by Randall Toribio MD) Smoking Status: Never smoker alcohol intake: never current occupational status: employed Travel in the last 8 weeks: Inside the [place] Other Medical History Have you received the Flu Vaccine for this season: No Have you received the Pneumonia Vaccine: No ROS Obtained: Yes All systems reviewed & no additional complaints except as documented Physical Exam General General appearance: alert and in no apparent distress Eye Eye exam: Present normal appearance, PERRL and EOMI Respiratory Respiratory exam: Present normal lung sounds bilaterally and wheezes (Bilateral, end expiratory); Absent respiratory distress Cardiovascular Cardiovascular exam: Present regular rate and normal rhythm Abdominal Exam Abdominal exam: Present soft and distention; Absent tenderness, guarding or rebound Extremities Exam Extremities exam: Present normal inspection Neurological Exam Neurological exam: Present alert and oriented X3 Skin Skin exam: Present warm and dry Medical Decision Making Medical Records Medical records reviewed: Yes I reviewed the patient's medical records. Screening: Per USPSTF and CDC recommendations, given the prevalence of disease in our region, it is our hospital?s policy to screen for HIV and viral Hepatitis for all patients aged 18 and over and those with ongoing risk factors. Vinny Inquiry Pt receiving controlled substance: No Vital Signs: 06/03/24 11:11 06/03/24 11:26 06/03/24 11:30 Temperature 98.2 F Temperature Source Oral Pulse Rate 75 80 Pulse Rate [Left Radial] 82 Respiratory Rate 16 Blood Pressure 166/97 H 149/96 H Blood Pressure [Right Arm] 166/97 H Blood Pressure Mean 127 113 Blood Pressure Mean [Right Arm] 120 Blood Pressure Source [Right Arm] Automatic Cuff Blood Pressure Position [Right Arm] Sitting 02 Sat by Pulse Oximetry 95 93 L 93 L Oxygen Delivery Method Room Air 06/03/24 13:15 06/03/24 13:30 06/03/24 14:00 Temperature Temperature Source Pulse Rate 63 66 69 Pulse Rate [Left Radial] Respiratory Rate Blood Pressure 132/89 136/88 145/92 H Blood Pressure [Right Arm] Blood Pressure Mean 102 Blood Pressure Mean [Right Arm] Blood Pressure Source [Right Arm] Blood Pressure Position [Right Arm] 02 Sat by Pulse Oximetry 96 95 97 Oxygen Delivery Method Room Air Room Air Room Air Lab Data Lab Results 06/03/24 11:15: Urine Color Yellow, Urine Appearance Clear, Urine pH 7.5, Ur Specific Griffith 1.010, Urine Protein Negative, Urine Glucose (UA) Negative, Urine Ketones Negative, Urine Blood Trace-i, Urine Nitrate Negative, Urine Bilirubin Negative, Urine Urobilinogen 0.2, Ur Leukocyte Esterase Negative, Urine RBC None, Urine WBC None, Ur Squamous Epith Cells None, Urine Bacteria None 06/03/24 11:18: WBC 8.3, RBC 4.75, Hgb 15.2, Hct 45.0, MCV 94.7, MCH 32.0 H, MCHC 33.7, RDW 13.0, Plt Count 268, MPV 7.2 L, Neut % (Auto) 47.8, Lymph % (Auto) 44.6, [place] % (Auto) 4.6, Eos % (Auto) 1.9, Baso % (Auto) 1.2, Neut # (Auto) 4.0, Lymph # (Auto) 3.7, [place] # (Auto) 0.4, Eos # (Auto) 0.2, Baso # (Auto) 0.1, PT 10.8, INR 0.96, Sodium 138, Potassium 3.9, Chloride 104, Carbon Dioxide 28, Anion Gap 9.9, BUN 12, Creatinine 0.90, Estimated Creat Clear 103, Estimated GFR 72, Est GFR ( Amer) 87, Glucose 108 H, Calcium 9.2, Total Bilirubin 0.6, AST 27, ALT 17, Alkaline Phosphatase 50, Troponin I < 0.01, Total Protein 7.6, Albumin 4.1, Globulin 3.5 H, Albumin/Globulin Ratio 1.2, HCG, Quant < 2 06/03/24 11:28: VBG pH 7.40, VBG pCO2 41.9, VBG pO2 48.3 H, VBG HCO3 25.3, VBG Total CO2 26.5, VBG O2 Saturation 84.6 H, VBG Base Excess 0.4, VBG Lactic Acid 1.6 06/03/24 11:18 06/03/24 11:18 Orders (Tests/Meds): ED MEDICATIONS Discontinued Medications Generic Name Dose Route Start Last Admin Trade Name Freq PRN Reason Stop Dose Admin Albuterol/Ipratropium 3 ml 06/03/24 11:29 06/03/24 11:54 Ipratropium/Albuterol 3 Ml Neb IH 06/03/24 11:30 3 ml ONCE ONE Administration Iopamidol 80 ml 06/03/24 12:42 06/03/24 12:43 Iopamidol-370 (76%);100ml Bottle IV 06/03/24 12:43 80 ml ONCE ONE Administration Sodium Chloride 50 ml 06/03/24 12:42 06/03/24 12:43 0.9 % Sodium Chloride 50 Ml Vial IV 06/03/24 12:43 50 ml ONCE ONE Administration Sodium Chloride 10 ml 06/03/24 12:42 06/03/24 12:43 Sodium Chloride 0.9% 10ml Syr (Rad Only) IV 06/03/24 12:43 10 ml ONCE ONE Administration ORDERS Category Date Time Status CTA Chest [CT angio chest PE protocol] Stat Cat Scan 06/03/24 11:29 Completed Beta HCG, Quant [HCG,Quantitative] Stat Lab 06/03/24 11:18 Completed CBC w/Auto Diff [Complete Blood Count Auto Diff] Stat Lab 06/03/24 11:18 Completed CMP [Comprehensive Metabolic Panel] Stat Lab 06/03/24 11:18 Completed HIV (1&2) Antibody Rapid Stat Lab 06/03/24 11:18 Received Hep C Ab with Reflex to RNA Stat Lab 06/03/24 11:18 Received PT/INR [Prothrombin Time INR] Stat Lab 06/03/24 11:18 Completed Troponin I Stat Lab 06/03/24 11:18 Completed Urinalysis and Microscopic Stat Lab 06/03/24 11:15 Completed VBG [Venous Blood Gas] Stat RT 06/03/24 11:28 Completed ECG Data Tracing #1: I reviewed this ECG and interpreted as documented below: Normal sinus rhythm at a rate 88, QTc 414, normal axis, no STEMI Medical Decision Narrative: In summary, this 33-year-old female with a history of prior pulmonary emboli in the setting of status post IVC filter placement in 2011 not currently on anticoagulation presents to the emergency department today with chest pain and shortness of breath that began last night. On initial evaluation patient is afebrile, hemodynamically stable, nontoxic-appearing, satting 95% on room air. Differential diagnosis includes but is not limited to ACS, PE, pneumothorax, asthma exacerbation. Wheezing bilaterally with no history of asthma or COPD. Based on these concerns, I ordered CBC, CMP, troponin, PT/INR, VBG, CT PE, EKG. ECG personally interpreted as noted above. Labs personally reviewed demonstrate undetectable troponin, unremarkable CBC, normal INR, normal venous pH and normal pCO2, normal lactate, unremarkable CMP, no UTI or hematuria. CT imaging personally interpreted demonstrates no acute pulmonary embolism or airspace opacity. On reevaluation, the patient had persistent wheezing and stated that she felt slightly better after her breathing treatment. She reported that she had been smoking since she was 9 years old. Likely has asthma versus COPD. Given prescription for albuterol inhaler and she stated that she did not have any at home and a 5-day course of steroids. Instructed to follow-up with PCP. Critical Care Critical Care Time Critical Care Time: No
--- NOTE | 2024-06-03 11:33 | PC.NURSE ---
notified RT of VBG order
--- NOTE | 2024-06-03 11:36 | PC.NURSE ---
PT DENIES ANY ALLERGY TO CONTRAST AT THIS TIME AND REPORTS A COUGH AFTER HER LAST SCAN
[2024-06-03 11:40] LABS: Lactate Venous 1.6 mmol/L (0.4-2.0); VBG Base Excess 0.4 mmol/L (-2.4-2.3); VBG HCO3 25.3 mmol/L (23-30); VBG Oxygen Saturation 84.6 % (50-70); VBG PCO2 41.9 mmol/L (35-51); VBG PO2 48.3 mmol/L (28-40); VBG Total CO2 26.5 mmol/L (23-27)
[2024-06-03 11:44] LABS: Basophils # 0.1 K/mm3 (0-0.2); Basophils % 1.2 % (0.1-2.0); Eosinophils # 0.2 K/mm3 (0.0-0.4); Eosinophils % 1.9 % (0.1-12.0); Hemoglobin 15.2 g/dL (12.2-16.2); Lymphocytes # 3.7 K/mm3 (0.7-4.5); Lymphocytes % 44.6 % (10-50); Mean Corpuscular HGB Conc 33.7 g/dL (31.8-35.4); Mean Corpuscular Volume 94.7 fl (81-99); Mean Platelet Volume 7.2 fl (7.4-10.4); Monocytes # 0.4 K/mm3 (0.1-1.0); Monocytes % 4.6 % (1.7-9.3); Neutrophils % 47.8 % (37.0-80.0); Platelet Count 268 K/mm3 (142-424); Red Blood Count 4.75 M/mm3 (4.20-5.40); White Blood Count 8.3 K/mm3 (4.8-10.8)
[2024-06-03 11:46] LABS: Chloride 104 mmol/L (98-107)
[2024-06-03 11:47] LABS: Albumin Level 4.1 g/dl (3.5-5.0); Potassium 3.9 mmoL/L (3.5-5.1); Sodium 138 mmol/L (136-145)
[2024-06-03 11:49] LABS: Blood Urea Nitrogen 12 mg/dl (7-17); Creatinine Clearance Estimated 103 mL/min (50-200); Estimated Glomerular Filt Rate 72 ml/min (>60); GFR (African American) 87 ML/MIN (>60)
[2024-06-03 11:50] LABS: Alanine Aminotransferase 17 U/L (12-78); Albumin/Globulin Ratio 1.2 (1.1-1.8); Alkaline Phosphatase 50 U/L (38-126); Anion Gap 9.9 mEq/L (5-15); Aspartate Amino Transferase 27 U/L (14-36); Bilirubin,Total 0.6 mg/dl (0.2-1.3); Calcium 9.2 mg/dl (8.4-10.2); Carbon Dioxide 28 mmol/L (22.0-30.0); Globulin 3.5 g/dL (1.3-3.2); Glucose 108 mg/dl (74-100); Total Protein,Serum 7.6 g/dl (6.3-8.2)
[2024-06-03] MEDS: IPRATROPIUM/ALBUTEROL 3 ML NEB IH (11:54)
[2024-06-03 11:58] LABS: Microscopic, Urine URINE MICROSCOPIC (MICROSCOPIC)
[2024-06-03 12:07] LABS: Appearance,Urine CLEAR (Clear); Bilirubin,Urine Negative (Negative); Blood, Urine TRACE-I (Negative); Color,Urine YELLOW (Yellow); Glucose,Urine (UA) Negative (Negative); Ketones,Urine Negative (Negative); Leukocyte Esterase,Urine Negative (Negative); Nitrate,Urine Negative (Negative); PH,Urine 7.5 (5.0-8.5); Protein,Urine Negative (Negative); Urobilinogen,Urine 0.2 EU/dl (0.2)
[2024-06-03 12:10] LABS: HCG,Quantitative < 2 mIU/ml (0-5.42); Troponin I < 0.01 ng/ml (0.00-0.034)
[2024-06-03 12:25] LABS: INR 0.96 (0.9-1.1); Prothrombin Time 10.8 seconds (10.1-12.5)
--- NOTE | 2024-06-03 12:32 | PC.NURSE ---
PT TO CT
[2024-06-03] MEDS: 0.9 % SODIUM CHLORIDE 50 ML VIAL IV (12:43)
[2024-06-03] MEDS: SODIUM CHLORIDE 0.9% 10ML SYR (RAD ONLY) 10 ML IV (12:43)
[2024-06-03] MEDS: IOPAMIDOL-370 (76%);100ML BOTTLE 80 ML IV (12:43)
--- NOTE | 2024-06-03 12:43 | PC.NURSE ---
PT RETURNED FROM CT
--- NOTE | 2024-06-03 13:16 | PC.NURSE ---
Rounded on pt. Provided pt with drink. No other needs voiced at this time.
[2024-06-03 17:08] LABS: HIV (1&2) Antibody Rapid NONREACTIVE (NONREACTIVE)
[2024-06-04 05:15] LABS: HCV Ab Non Reactive (Non Reactive)
== END 2024-06-03 14:28 | disposition home or self-care (01) ==
PROVIDERS: Emergency Provider Student in an Organized Health Care Education/Training Program; PCP Nurse Practitioner
DX: R07.9 Chest pain, unspecified (principal); R06.02 Shortness of breath; R09.89 Other specified symptoms and signs involving the circulatory and respiratory systems
CPT/HCPCS: 71275; 80053; 81001; 82803; 84484; 84702; 85025; 85610; 86803; 87389; 93005; 99285; J7620; Q9967

== ENCOUNTER 2025-06-11 13:08 | Emergency (ER) | payer SELFPAY ==
[2025-06-11 13:13] VITALS: BP 143/78; PULSE 77; RESP 18; TEMP 36.6; O2SAT 99; BMI 58.6
--- OUTSIDE RECORDS SUMMARY | 2025-06-11 13:16 | XMS_ITS | Clinical Summary ---
Author Organization [facility] Address [address] [place] [address] Care Team Providers Care Licensing Analyst Name Role Phone Whit Galvan Primary Care Provider [phone] Allergies No known active allergies Medications docusate sodium (COLACE) 100 MG capsule Take 1 capsule by mouth 2 (two) times daily for 10 days 30 capsule 3 01/19/2017 Active chlorhexidine (PERIDEX) 0.12% solution Use 15 mLs in the mouth or throat 2 (two) times daily. 118 mL 06/17/2020 Active traMADol (ULTRAM) 50 MG tabletIndicatio ns:Acute deep vein thrombosis (DVT) of popliteal vein of right lower extremity Take 1 tablet by mouth every 6 (six) hours as needed for Pain. Max Daily Amount: 200 mg 30 tablet 06/18/2020 Active apixaban (ELIQUIS) 5 MG tabletIndicatio ns:Acute deep vein thrombosis (DVT) of popliteal vein of right lower extremity,Hx pulmonary embolism Take 1 tablet by mouth 2 (two) times daily. 60 tablet 3 06/23/2020 Active buPROPion (WELLBUTRIN XL) 150 MG 24 hr tabletIndicatio ns:Cigarette nicotine dependence with other nicotine-induce d disorder TAKE 1 TABLET BY MOUTH DAILY 90 tablet 09/14/2020 Active lidocaine (LIDODERM) 5 % Place 1 patch onto the skin daily Remove & Discard patch within 12 hours or as directed by . 4 patch 01/27/2021 Active Active Problems Patient Care Coordination No te Formatting of this note migh t be different from the original. Last OB visit 1 month ago. 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 Contraindication to Warfarin of 201609/22/2016 Overview (09/27/2016): Furnace Operator And Tender: Mario Fernández MD, MA, FACP, FRANCHESKAO Contraindication to Warfarin of 2016 Summary: Despite repeating testing and adjustment of warfarin to maintain an INR 2-3 the patient could not be kept at a therapeutic level by 2016. B12 deficiency of 201507/12/2016 Overview (06/23/2020): Furnace Operator And Tender: Mario Fernández MD, MA, FACP B12 Deficiency of 2015 Summary: During her 4th the patient was found to have a b12 deficiency anemia in 2015. Diagnosis: The patient was found to have a B12 deficiency despite vitamins during her 4th . After delivery her B12 level remained in the low normal area. Treatment: She was treated with B12 1000 mg IM in May 2016. Pulmonary Embolism of May 2016 06/06/2016 Overview (01/05/2017): Furnace Operator And Tender: Mario Fernández MD, MA, FACP, MANISH Pulmonary Embolism During Post- Period of May 2016 Summary. At age 25 this smoking woman developed her second VTE event with PE from LE in May 2016, which was 12 days after delivery of baby #4 and 11 days after depo-provera injection; s/p anticoagulation for 6 months. Diagnosis: The patient continued to smoke despite her previous life-threatening PE in 2010. After she discovered that she was she was placed back on enoxaparin 150 mg/subcu/day. She delivered her 4th child successfully on 25 May [address] She was place on enoxaparin 40 mg/subcu/day for a planned 6 weeks beginning on 25 May 2016. She received a depo-Provera injection on 26 May 2016. On 06 June 2016 she was found to have her 2nd VTE in the form of PE. Treatment: The patient was placed on unfractionated heparin. She was placed on warfarin. By August 2016 she had difficulty maintaining an INR 2-3. She was switch to rivaroxaban because warfarin could not be made therapeutic. She completed therapy on 11 December 2016. Tobacco abuse 10/20/2015 S/P IVC filter 10/27/2011 Pulmonary Embolus During of July 29 011 07/30/2011 Overview (06/07/2016): Furnace Operator And Tender: Mario Fernández MD, MA, FACP Pulmonary Embolus During of July 2011: At age 21 this smoking woman developed her first VTE in the form of a DVT with PE that was refractory to treatment and reappeared within 6 months while on anticoagulation therapy in 2010. Diagnosis: The patient started smoking at age 10. She was exposed to control pills and had successfully delivered 2 previous children without a VTE prior to 2010.During her first trimester she developed a RLE DVT and PE. She was hospitalized at [facility] ([place], [place]). Treatment She was treated with heparin and discharged on enoxaparin and oxygen. She continued on enoxaparin during her entire . She delivery a healthy baby on 02 February 2011. While taking enoxaparin as prescribed (150 mg/sub cu q day) she redeveloped PE in October 2011. An IVC filter was placed. Hypercoagulable state of 05 July [id number] Overview (08/02/2020): Furnace Operator And Tender: Mario Fernández MD, MA, FACP, FASCO Hypercoagulable State of 1990 Summary: The patient's hypercoagulable state became manifest in her 3rd decade. Resolved Problems Problem Noted Date Diagnosed Date Resolved Date Encounter for IUD insertion 07/18/2016 09/22/2016 care following vaginal delivery 06/21/2016 12/20/2016 05/25/2016 05/25/2016 Full-term PROM with onset of labor within 24 hours of rupture 05/25/2016 09/22/2016 Tobacco use complicating 10/22/2015 09/22/2016 History of premature deliver y, currently 10/22/2015 09/22/2016 in multigravida 10/20/2015 Obesity affecting 10/20/2015 09/22/2016 DVT of leg (deep venous thrombosis) 01/05/2017 Overview (06/21/2016): RLE Immunizations Immunization Administration Dates Next Due Influenza [facility] Inpatient 05/26/2016 Tdap 05/03/2016 Family History Medical History Relation Comments COPD Father Diabetes Father Hypertension Father Mitral valve prolapse Mother s/p valve replacement, s/p pacer Pulmonary embolism Paternal Grandfather cause of Heart disease Paternal Grandmother Seizures Sister Relation Status Comments Brother Alive Father passed at 59 Maternal Grandfather Maternal Grandmother Mother Alive Paternal Grandfather Paternal Grandmother Sister Alive Social History Tobacco Use Types Packs/Day Years Used Date Smoking Tobacco: Every Day Cigarettes 0.5 15 Smokeless Tobacco: Never Tobacco Cessation:Ready to Q uit: Yes; Counseling Given: Yes Alcohol Use Standard Drinks/Week Comments No 0 (1 standard drink = 0.6 oz pur e alcohol) Comments No Sex and Gender Information Value Date Recorded Sex Assigned at Not on file Legal Sex Female 3:55 PM EDT Gender Identity Not on file Sexual Orientation Not on file Last Filed Vital Signs Vital Sign Reading Time Taken Comments Blood Pressure 124/65 01/27/2021 11:52 PM EDT Pulse 72 01/27/2021 11:52 PM EDT Temperature 36.4 C (97.5 F) 07/16/2020 3:58 PM EST Respiratory Rate 18 01/27/2021 11:5 2 PM EDT Oxygen Saturation 97% 01/27/2021 11: 52 PM EDT Inhaled Oxygen Concentration - - Weight 129.3 kg (285 lb 0.9 oz) 07/16/2020 3:58 PM EST Height 182.9 cm (6') 07/16/2020 3:58 PM EST Body Mass Index 38.66 07/16/2020 3:58 PM EST Plan of Treatment Health Maintenance Due Date Last Done Comments HPV Vaccine (1 - 3-dose SCDM series) 2017 Cervical Cancer Screening 10/20/2018 10/20/2015 Annual SDOH Screening 08/28/2024 Influenza Vaccine (#1) 2025 6, 05/26/2016, 05/31/2012 Tdap/Td Vaccine >11 yo (3 - Td or Tdap) 05/03/2026 05/03/2016, 10/04/2002 Hepatitis B (HepB) Vaccine Completed 10/04, 04/30/2002, 04/02/2002 Haemophilus Influenzae Type B (Hib) Vaccine Aged Out No longer eligible b ased on patient's age to complete this topic Hepatitis A (HepA) Vaccine Aged Out N o longer eligible based on patient's age to complete this topic Meningococcal ACWY Aged Out No longer eligible based on patient's age to complete this topic Pneumococcal Vaccines 6-49 y o Risk Aged Out No longer eligible b ased on patient's age to complete this topic Polio (IPV) Aged Out No longer eligi ble based on patient's age to complete this topic Rotavirus (RV) Vaccine Aged Out No lo nger eligible based on patient's age to complete this topic Procedures Procedure Name Priority Date/Time Associated Diagnosis Comments PAP SMEAR Routine 10/20/2015 11:05 AM EST in multigravida from Last 3 Months or Most Recently Relevant to Health Maintenance Results * Pap Smear (10/20/2015 11:05 AM EST) Pathology SPECIMEN FROM UTERINE CERVIX / Unknown 10/20/2015 11:05 AM EST 10/20/2015 11:05 AM EST Narrative [facility] ([facility]) - 10/29/2015 8:44 AM EST [facility] [address] [place] [address] * Clinician: Patient Name: Accession Number: MD FAITH ODONNELL EMILY F [id number] [facility] - Collected: SAGE : 1990 [facility]20/[facility] [address] [facility] Sex: F Received: [address] Chart #: 10/20/2015 [place] [address]- Reported: 10/29/2015 GYNECOLOGIC CYTOLOGY REPORT Final Report DIAGNOSIS: NEGATIVE (NO EVIDENCE OF INTRAEPITHELIAL LESION OR MALIGNANCY) SPECIMEN ADEQUACY: SATISFACTORY FOR EVALUATION: ENDOCERVICAL MATERIAL PRESENT SPECIMEN SOURCE: THIN PREP CERVICAL/ENDOCERVICAL MENSTRUAL STATUS: LMP: 08/30/2015 : Y CPT Codes: (Tech) - 21958, x1 RETAIL PHARMACY MANAGER: THERON HORN (ASCP) QC REVIEW : THERON SIMON (ASCP) <Sign Out Dr. Drew> SIGNED OUT BY: THERON SIMON (ASCP) PRIOR PATIENT HISTORY: Pap smear testing is subject to false negative and false positive results. This result should be interpreted in conjunction with history and clinical findings. ThinPrep specimens have been analyzed by the ThinPrep Imaging System (Send[employer]), an automated imaging and review system. Luis Miguel Romero M.D. - Social Work Supervisor Shyam Mello M.D. - Director of Cytopathology us Ines Vega MD PATHOLOGY/CYTOLOGY STEVE LEMUS Final Result [facility] ([facility]) [address] [place] [id number] from Last 3 Months or Most Recently Relevant to Health Maintenance Insurance [facility] [place] [address] [place] [address] Advance Directives Documents on File Type Date Recorded Patient Wet Process Operator Expl anation MOST Form 01/12/2017 10:57 AM * Full Code (Latest Code Status on File) Date Activated Date Inactivated Comments 06/07/2016 2:40 AM 06/10/2016 4:32 PM * Full Code Date Activated Date Inactivated Comments 05/26/2016 1:06 AM 05/27/2016 4:36 PM * Full Code Date Activated Date Inactivated Comments 05/25/2016 10:39 AM 05/26/2016 1:06 AM Care Teams Licensing Analyst Relationship Specialty Start Date End Date Whit Galvan PA PCP - General Physician Director Integrated Medical 06/07/16
--- NOTE | 2025-06-11 13:30 | HMH.EDGENADL ---
Discharge Plan Disposition Patient Disposition: Home, Self-Care Prescriptions Prescriptions: New amoxicillin-pot clavulanate 875-125 mg tablet 1 tab PO BID Qty: 20 0RF oxycodone 5 mg tablet 5 mg PO Q8H PRN (Reason: pain) Qty: 7 0RF No Action losartan-hydrochlorothiazide 50-12.5 mg tablet 1 tab PO DAILY albuterol sulfate 90 mcg/actuation HFA aerosol inhaler 3 inh inhalation Q4H PRN (Reason: shortness of breath or wheezing) Qty: 6.7 0RF wsnlfwucgpcawjp-uqnyreczv-IT [Bromfed DM] 2-30-10 mg/5 mL syrup 5 ml PO Q6H PRN (Reason: cold symptoms) Qty: 118 0RF prednisone 50 mg tablet 50 mg PO DAILY 3 Days Qty: 3 0RF albuterol sulfate [Proventil HFA] 90 mcg/actuation HFA aerosol inhaler 2 inh inhalation Q6H PRN (Reason: shortness of breath or wheezing) Qty: 8.5 0RF prednisone 50 mg tablet 50 mg PO DAILY 5 Days Qty: 5 0RF Referrals Follow up/Referrals: Oksana Clark APRN [Primary Care Provider, Medical] - See instructions Activity Restrictions/Add. Instructions Additional Instructions/Restrictions: You have been seen and evaluated the emergency department. Please follow-up with dentistry. You have been prescribed antibiotics and pain medication. Return to the ED with worsening facial swelling or fever. Clinical Impressions Clinical Impression: Dental caries Instructions Patient Instructions: DI for Dental Pain Print Language Print Language: Setswana Discharge ED Provider: Nurys Chahal Adult HPI General Chief complaint: Dental/Oral Stated complaint: Tooth pain Time Seen by Provider: 06/11/25 13:10 Mode of Arrival: Ambulatory Source of Information: Patient Description of Symptoms (Recalled from ER Triage Doc. by RN): Patient reports a tooth breaking on the left upper side of her mouth a couple days ago. Now states that she is having pain and swelling on that side. History of Present Illness HPI narrative: 34-year-old female presenting to the emergency department for dental pain. She reports history of pulmonary embolism multiple years ago and states she has had her tubes tied. She reports increasing pain after a tooth broke off on her left mandible. Denies any recent fevers. She is concerned for development of abscess. No throat pain or trouble swallowing. No neck pain. No recent antibiotics. Related Data Home Medications ?Medication ?Instructions ?Recorded ?Confirmed losartan 50 mg-hydrochlorothiazide 1 tab PO DAILY 02/11/24 02/11/24 12.5 mg tablet Previous Rx's ?Medication ?Instructions ?Recorded albuterol sulfate 90 mcg/actuation 3 inh inhalation Q4H PRN shortness 02/11/24 aerosol inhaler of breath or wheezing #6.7 grams bbjrvjgdnmrqjwa-ddwkrcrqhhueink-FT 5 ml PO Q6H PRN cold symptoms #118 02/11/24 2 mg-30 mg-10 mg/5 mL oral syrup mL (Bromfed DM) prednisone 50 mg tablet 50 mg PO DAILY 3 days #3 tabs 02/11/24 albuterol sulfate 90 mcg/actuation 2 inh inhalation Q6H PRN shortness 06/03/24 aerosol inhaler (Proventil HFA) of breath or wheezing #8.5 grams prednisone 50 mg tablet 50 mg PO DAILY 5 days #5 tabs 06/03/24 amoxicillin 875 mg-potassium 1 tab PO BID #20 tabs 06/11/25 clavulanate 125 mg tablet oxycodone 5 mg tablet 5 mg PO Q8H PRN pain #7 tabs 06/11/25 Allergies Allergy/AdvReac Type Severity Reaction Status Date / Time Iodinated Contrast Media AdvReac Mild Cough Verified 06/03/24 11:35 [facility] Disclaimer: The information contained in this section may have been updated after the patient was seen, as this information can be updated by other users. Social History (Updated 03/10/23 @ 13:15 by Randall Toribio MD) Smoking Status: Current every day smoker alcohol intake: never current occupational status: employed Travel in the last 8 weeks?: Inside the [place] Have you lived/traveled outside US in past 30 days?: No Contact w/someone who lives/traveled outside US past 30 days?: No Exposure to someone with infectious disease in past 14 days?: No Do you have a fever (greater than 100.4 F or 38 C)?: No Have you tested positive for COVID-19?: No Exposed to someone with COVID-19 in past 14 days?: No Do you have a sore throat?: No Do you have a cough?: No Do you have any weakness?: No Do you have any diarrhea?: No Are you experiencing any unusual bleeding?: No Do you have any muscle aches/pain?: No Do you have any abdominal pain?: No Are you experiencing loss of taste or smell?: No Other Medical History Have you received the Flu Vaccine for this season: No Have you received the Pneumonia Vaccine: No ROS Obtained: Yes All systems reviewed & no additional complaints except as documented Physical Exam General General appearance: alert and in no apparent distress Head Head exam: atraumatic Eye Eye exam: Present normal appearance, PERRL and EOMI ENT ENT exam: Present mucous membranes moist and other (Poor dentition, gingival erythema surrounding the mandibular anterior incisors. No palpable abscess or fluctuance) Neck Neck exam: Present normal inspection and full ROM; Absent tenderness Chest Chest inspection: Present symmetric chest wall rise; Absent tenderness Respiratory Respiratory exam: Absent respiratory distress, wheezes or accessory muscle use Cardiovascular Cardiovascular exam: Present regular rate and normal rhythm Abdominal Exam Abdominal exam: Present soft; Absent tenderness or guarding Extremities Exam Extremities exam: Present full ROM; Absent tenderness Neurological Exam Neurological exam: Present alert and oriented X3 Psychiatric Psychiatric exam: Present normal affect Skin Skin exam: Present warm and dry Medical Decision Making Medical Records Screening: Per USPSTF and CDC recommendations, given the prevalence of disease in our region, it is our hospital?s policy to screen for HIV and viral Hepatitis for all patients aged 18 and over and those with ongoing risk factors. Vinny Inquiry Pt receiving controlled substance: No Vinny was queried for this patient: Yes Vital Signs: 06/11/25 13:13 06/11/25 13:47 Temperature 97.9 F 98.0 F Temperature Source Oral Oral Pulse Rate 70 Pulse Rate [Radial] 77 Respiratory Rate 18 18 Blood Pressure 143/78 H Blood Pressure [Right Arm] 143/78 H Blood Pressure Mean [Right Arm] 99 Blood Pressure Source Automatic Cuff Blood Pressure Source [Right Arm] Automatic Cuff Blood Pressure Position Sitting Blood Pressure Position [Right Arm] Sitting 02 Sat by Pulse Oximetry 99 Oxygen Delivery Method Room Air Room Air Orders (Tests/Meds): ORDERS Category Date Time Status HIV Combo Stat Lab 06/11/25 13:16 Ordered Hepatitis C Ab Qual. W/ RFX Stat Lab 06/11/25 13:16 Ordered Medical Decision Narrative: In summary, this is a 34y/o female presenting the emergency department for dental pain. Differential diagnosis includes but is not limited to: Dental carry, dental abscess, gingival abscess, periapical abscess, acute necrotizing ulcerative gingivostomatitis On my initial assessment, the patient is hemodynamically stable in no acute distress. Physical exam is notable for digital erythema without evidence of abscess. There is no significant facial swelling. Patient is appropriate for discharge home. There is no indication for laboratory evaluation or imaging at this time. She was discharged home with Augmentin and instructions to continue ibuprofen. She was given a short prescription for oxycodone for breakthrough pain. Critical Care Critical Care Time Critical Care Time: No
[2025-06-11 13:47] VITALS: BP 143/78; PULSE 70; RESP 18; TEMP 36.7; O2SAT 98
== END 2025-06-11 13:48 | disposition home or self-care (01) ==
PROVIDERS: Emergency Provider Student in an Organized Health Care Education/Training Program; PCP Nurse Practitioner
DX: K08.89 Other specified disorders of teeth and supporting structures (principal); F17.210 Nicotine dependence, cigarettes, uncomplicated
CPT/HCPCS: 99283

== ENCOUNTER 2025-08-22 16:50 | Emergency (ER) | payer OTHER, SELFPAY ==
[2025-08-22 16:51] VITALS: BP 140/94; PULSE 84; RESP 16; TEMP 37.4; O2SAT 96; BMI 41.5
--- NOTE | 2025-08-22 17:01 | ED_ITS ---
<Statement entered by Debbie Nuñez MD - 08/22/25 18:39> I was consulted by the GRISEL, and we discussed the complexity of the problems being addressed. I approved the treatment and management plan for this patient's care in the emergency department, thus performing a substantive portion of the medical decision making. Debbie Nuñez MD, SYLVAIN, FACEP Discharge Plan Disposition Patient Disposition: Home, Self-Care Condition: Good Prescriptions Prescriptions: New acetaminophen 325 mg tablet 650 mg PO Q6H PRN (Reason: pain) Qty: 60 0RF ibuprofen 600 mg tablet 600 mg PO Q6H PRN (Reason: fever or pain) Qty: 60 0RF ondansetron 4 mg tablet,disintegrating 4 mg PO Q6H PRN (Reason: nausea and vomiting) Qty: 16 0RF No Action losartan-hydrochlorothiazide 50-12.5 mg tablet 1 tab PO DAILY albuterol sulfate 90 mcg/actuation HFA aerosol inhaler 3 inh inhalation Q4H PRN (Reason: shortness of breath or wheezing) Qty: 6.7 0RF yxzwogukqwvrrbt-ukwruaisx-XG [Bromfed DM] 2-30-10 mg/5 mL syrup 5 ml PO Q6H PRN (Reason: cold symptoms) Qty: 118 0RF prednisone 50 mg tablet 50 mg PO DAILY 3 Days Qty: 3 0RF albuterol sulfate [Proventil HFA] 90 mcg/actuation HFA aerosol inhaler 2 inh inhalation Q6H PRN (Reason: shortness of breath or wheezing) Qty: 8.5 0RF prednisone 50 mg tablet 50 mg PO DAILY 5 Days Qty: 5 0RF amoxicillin-pot clavulanate 875-125 mg tablet 1 tab PO BID Qty: 20 0RF oxycodone 5 mg tablet 5 mg PO Q8H PRN (Reason: pain) Qty: 7 0RF Referrals Follow up/Referrals: Oksana Clark APRN [Primary Care Provider, Medical] - See instructions Activity Restrictions/Add. Instructions Additional Instructions/Restrictions: You were evaluated on an emergency basis. It is very important that you follow- up with your primary care provider and any specialist who we discussed within the next 2 days in order to better assess your health more comprehensively. For example, incidental findings on imaging or laboratory results that were performed today may be discovered, which do not require immediate medical care, but may impact your health in the future. If your symptoms worsen or persist, please return to the emergency department immediately for reassessment. Take all medications as prescribed. In queue for allowing me to participate in your health care, and I hope you feel better soon. Clinical Impressions Clinical Impression: Influenza A Instructions Patient Instructions: Influenza Print Language Print Language: Cam[place]onian Discharge ED Provider: Debbie Nuñez General Adult HPI General Chief complaint: Upper Respiratory Infection Stated complaint: JUAREZ,nausea,cough,congestion,body cramps Time Seen by Provider: 08/22/25 16:58 History of Present Illness HPI narrative: 35-year-old female presents emergency department with her son who is also being seen as a patient. She reports they both have had cough, congestion, fevers, headaches with nausea. He states symptoms started today. They state that they were recently exposed to someone that was flu positive. They have not take any medication for symptom relief prior to arrival. Related Data Home Medications ?Medication ?Instructions ?Recorded ?Confirmed losartan 50 mg-hydrochlorothiazide 1 tab PO DAILY 01/2602/11/24 12.5 mg tablet Previous Rx's ?Medication ?Instructions ?Recorded albuterol sulfate 90 mcg/actuation 3 inh inhalation Q4 H PRN shortness 02/11/24 aerosol inhaler of breath or wheezing #6.7 g bina nutwdktwqyxwayt-qifqipuobxsyrhf-MX 5 ml PO Q6H PRN col d symptoms #118 02/11/24 2 mg-30 mg-10 mg/5 mL oral syrup mL (Bromfed DM) prednisone 50 mg tablet 50 mg PO DAILY 3 days #3 tab s 02/11/24 albuterol sulfate 90 mcg/actuation 2 inh inhalation Q6 H PRN shortness 06/03/24 aerosol inhaler (Proventil HFA) of breath or wheezing #8.5 grams prednisone 50 mg tablet 50 mg PO DAILY 5 days #5 tab s 06/03/24 amoxicillin 875 mg-potassium 1 tab PO BID #20 tabs clavulanate 125 mg tablet oxycodone 5 mg tablet 5 mg PO Q8H PRN pain #7 tabs 06/11/25 acetaminophen 325 mg tablet 650 mg (2 x 325 mg) PO Q6H PRN 08/22/25 pain #60 tabs ibuprofen 600 mg tablet 600 mg PO Q6H PRN fever or p ain 08/22/25 #60 tabs ondansetron 4 mg disintegrating 4 mg PO Q6H PRN nausea and 08/22/25 tablet vomiting #16 tabs Allergies Allergy/AdvReac Type Severity Reaction Status Date / Time Iodinated Contrast Media AdvReac Mild Cough Verified 06/03/24 11:35 [facility] Disclaimer: The information contained in this section may have been updated after the patient was seen, as this information can be updated by other users. Social History (Updated 03/10/23 @ 13:15 by Randall Toribio MD) Smoking Status: Never smoker alcohol intake: never current occupational status: employed Travel in the last 8 weeks?: Inside the [place] Have you lived/traveled outside [place] in past 30 days?: No Contact w/someone who lives/traveled outside [place] past 30 days?: No Exposure to someone with infectious disease in past 14 days?: No Do you have a fever (greater than 100.4 F or 38 C)?: No Have you tested positive for COVID-19?: No Exposed to someone with COVID-19 in past 14 days?: No Do you have a sore throat?: No Do you have a cough?: No Do you have any weakness?: No Do you have any diarrhea?: No Are you experiencing any unusual bleeding?: No Do you have any muscle aches/pain?: No Do you have any abdominal pain?: No Are you experiencing loss of taste or smell?: No Other Medical History Have you received the Flu Vaccine for this season: No Have you received the Pneumonia Vaccine: No ROS Obtained: Yes other Constitutional Constitutional: Reports body ache, Reports fatigue, Reports fever(s) and Reports malaise Respiratory Respiratory: Reports cough and Reports wheezing Gastrointestinal Gastrointestingal: Reports nausea Endocrine Endocrine: Reports fatigue Allergic/Immunologic Allergic/Immunologic: Reports wheezing Physical Exam Narrative Physical exam: General: Awake, aware, in no acute distress HEENT: Normocephalic, no evidence of trauma CV: RRR, no murmurs, rubs, or gallops Pulm: Mild wheezing noted bilaterally. Patient has a dry cough during exam ABD: Nontender, no swelling, guarding, or rebound tenderness Psych, appropriate mood and affect General General appearance: other Respiratory Respiratory exam: Present wheezes Cardiovascular Cardiovascular exam: Present regular rate Neurological Exam Neurological exam: Present alert Medical Decision Making Medical Records Screening: Per USPSTF and CDC recommendations, given the prevalence of disease in our region, it is our hospital?s policy to screen for HIV and viral Hepatitis for all patients aged 18 and over and those with ongoing risk factors. Vinny Inquiry Pt receiving controlled substance: No Vital Signs: 08/22/25 16:51 Temperature 99.4 F Temperature Source Oral Pulse Rate [Left Radial] 84 Respiratory Rate 16 Blood Pressure [Right Arm] 140/94 H Blood Pressure Mean [Right Arm] 109 Blood Pressure Source [Right Arm] Automatic Cuff Blood Pressure Position [Right Arm] Sitting 02 Sat by Pulse Oximetry 96 Oxygen Delivery Method Room Air Lab Data Lab Results 08/22/25 16:55: SARS-CoV-2 (PCR) Not detected, Influenza Type A (PCR) Detected A , Influenza Type B (PCR) Not detected, RSV (PCR) Not detected, Rhinovirus (PCR) Not detected Orders (Tests/Meds): ED MEDICATIONS Discontinued Medications Generic Name Dose Route Start Last Admin Trade Name [place] PRN Reason Stop Dose Admin Albuterol Sulfate 2 puff 08/22/25 17:32 08/22/25 17:49 Albuterol-Hfa 90mcg/Puff Inhaler 8gm IH 08/22/25 17:33 2 puff ONCE ONE Administration Ibuprofen 800 mg 08/22/25 17:31 08/22/25 17:49 Ibuprofen 800 Mg Tablet PO 08/22/25 17:32 800 mg ONCE ONE Administration Miscellaneous 1 unit 08/22/25 17:31 08/22/25 17:49 Aerochamber/Optihaler MC 08/22/25 17:32 1 unit ONCE ONE Administration Ondansetron HCl 4 mg 08/22/25 17:31 08/22/25 17:49 Ondansetron 4mg Odt SL 08/22/25 17:32 4 mg ONCE ONE Administration ORDERS Category Date Time Status Mini Respiratory Panel Stat Lab 08/22/25 16:55 Completed Medical Decision Narrative: Initial impression of presenting illness: 35-year-old female presents the emergency department with complaints of cough, fever, nausea, headache, body aches. She states that her son who is also being seen started with the symptoms today. They state that they were recently exposed to someone that was flu positive. They have not take any medication for symptom relief prior to arrival. Differential diagnosis includes but is not limited to: Viral illness, dehydration, pneumonia, COPD Patient arrives hemodynamically stable, afebrile, without respiratory distress with vital signs interpreted by myself. Initial physical exam reveals mild wheezing bilaterally. Rest of exam was unremarkable. Initial diagnostic plan: Mini respiratory panel, ibuprofen for headache, Zofran for nausea, albuterol for wheezing Results from initial plan were reviewed and interpreted by myself, pertinent positives include: Patient's respiratory panel was positive for influenza A. Interventions in the ED: Patient was given ibuprofen for symptom relief as well as Zofran for nausea and albuterol inhaler for wheezing. Patient was made aware of the results and the findings, upon reevaluation patient has remained stable throughout stay, symptoms remained stable. Upon reevaluation patient is resting comfortably in her bed with no signs of acute distress. Her wheezing has diminished bilaterally Disposition: Reviewed finding today's workup with patient informed her that she was positive for influenza A. I recommended that she continue with the albuterol inhaler 2 puffs every 4-6 hours as needed for cough or shortness of breath I also encouraged her to use Tylenol and ibuprofen as needed for pain and fever control. 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 instructed her to return to the emergency department a [place] new or worsening symptoms including uncontrolled fever, shortness of breath, inability to tolerate p.o. Patient was agreeable to plan of care. Patient made aware of findings and had a detailed discussion with symptomatic care and return precautions, patient voiced understanding. Critical Care Critical Care Time Critical Care Time: No
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
--- OUTSIDE RECORDS SUMMARY | 2025-08-22 17:02 | XMS_ITS | Continuity of Care Document ---
Author Organization [place] - [employer] [facility], [place] Address [address] [place] [phone] Assessment No assessment recorded. Plan of Treatment Reminders Order Date Submit Date Provider Last Modified By Organization Details Last Modified Time Details Appointments FOLLOW UP 2025 01:00P M Susan Clark APRN Not available Not available Not available Lab PPD (purifie d protein derivati ve), skin test 2024 025 [email or web address] [facility], [place], [address] [place] [address], [phone], 06/26/2025 13:21:15 Referral None recorded . Procedures None recorded . Surgeries None recorded . Imaging None recorded . Medication Orders None recorded . Patient TargetsNo targets recorded. Patient InstructionsNo instructions recorded. Reason for Referral None Reported. Results Created Date Observation Date Name Description Value Unit Range Abnormal Flag Note LastModifiedBy Organization Detail LastModifiedTime 06/26/2006/26/2025 PPD (getachew fied prote in deriv ative ), skin test TB negati ve Not Available [address], [phone], 06/26/2025 08:33:05 Result Notes None recorded. Problems Name Problem SNOMED Code Status Onset Date Resolution Date Notes Provider Name and Address Organization Details Recorded Time Elevated blood-pr essure reading without diagnosi s of hyperten amanda [id number] Completed 202011/04/2022 [place] [employer] 3 09:10:24 Exposure to sexually transmis sible disorder Completed 202011/04/2022 Problem Code: Z20.2; Problem Code Type: ICD-10; [place], [employer] 3 09:10:24 Tobacco dependen ce caused by cigarett es 38352501782 208122 Active 2020 Problem Code: F17.210; Problem Code Type: ICD-10; Not Available [facility] 2 21:58:36 Finding of body mass index 623356224 Active 2020 Problem Code: Z68.41; Problem Code Type: ICD-10; Not Available [facility] 2 21:58:37 Dental caries 81314398 Active 2022 Porsha Oakes PA-C [address] [place] [address], [phone] [facility] [employer] 3 10:00:17 Problem Notes None recorded. Procedures Surgical History Date Name Laterality Status Provider Name and Address Organization Details Recorded Time 05/19/20 ligation of bilateral fallopian tubes completed Not Available [facility] 05/03/2022 22:56:23 05/19/20 tonsillectomy and adenoidectomy completed Not Available [facility] 05/03/2022 22:56:25 Imaging Results None recorded. Procedure [...] Avai lable Vitals Date Recorded Body height Provider Name an d Address Organization Details Last Updated DateTime 06/26/2025 182.88 cm Lucretia Davila [employer] 06/26/2025 08:24:38 Social History Question Answer Notes LastModified by Organizat ion Details LastModified Time Tobacco Smoking Status Current Every Day Smoker Nini colunga [employer] 06/30/2023 13:51:21 Do You Have An Advance Directive? No Information not available 07/01/2023 Is Your Home Air Conditioned? Yes [email or web address] Information not available 07/01/2023 Are You Blind Or Do You Have Difficulty Seeing? No Information not available 05/19/2023 What Is Your Level Of Caffeine Consumption? Occasional [email or web address] Information not available 07/01/2023 In The 14 Days Before Symptom Onset, Have You Had Close Contact With A Laboratory-confir med COVID-19 While That Case Was Ill? No Information not available 05/19/2023 In The 14 [...] Or Recreational Drugs Have You Used? Marijuana Information not available 07/01/2023 Who Is Your Employer? [employer] [email or web address] Information not available 07/01/2023 Have There Been Any Changes To Your Family Or Social Situation? No Information no t available 05/19/2023 Are There Any Guns Present In Your Home? No [email or web address] Information not available 07/01/2023 Which Of Your Hands Is Dominant? Right Information not available 05/19/2023 What Is Your Home Situation? Other Information not available 05/19/2023 Do You Have A Medical Power Of Delivery Analyst? No [email or web address] Information not available 07/01/2023 What Was The [...] Carbon Monoxide Detectors In Your Home? Yes [email or web address] Information not available 07/01/2023 At What Age Did You Start Smoking Tobacco? 18 Information not available 05/19/2023 Are You Passively Exposed To Smoke? Yes [email or web address] Information no t available 07/01/2023 Are There Any Smokers In Your House? Yes [email or web address] Information not available 07/01/2023 How Much Tobacco Do You Smoke? 1 PPD Information not available 05/19/2023 Do You Use Sunscreen Routinely? No [email or web address] Information not available 07/01/2023 Has Tobacco Cessation [...] use any illicit or recreational drugs? Yes [email or web address] Information not available 07/01/2023 Do you or have you ever used any other forms of tobacco or nicotine? No Information not available 05/19/2023 What is your level of alcohol consumption? None Information not available 05/19/2023 Are you currently employed? Yes Information not available 05/19/2023 Do you have transportation difficulties? No [email or web address] Information not available 07/01/2023 Are you able [...] Time Father Family history of hyperlipidem ia [email or web address] Not available 11/2022 09:48:01 Father Family history of drug abuse [email or web address] Not available 09:48:07 Father Family history of Hypertension [email or web address] Not available 07/01/2023 09:48:22 Father Family history of ischemic heart disease [email or web address] Not available 11/2022 09:48:41 Paternal Grandfather Family history of diabetes mellitus type 2 [email or web address] Not available 11/2022 09:48:13 Paternal Grandfather Family history of Hypertension [email or web address] Not available 07/01/2023 09:48:27 Paternal Grandmother Family history of diabetes mellitus type 2 [email or web address] Not available 11/2022 09:48:16 Paternal Grandmother Family history of Hypertension [email or web address] Not available 07/01/2023 09:48:29 Mother Congenital heart disease [email or web address] Not available 11/2022 09:49:06 Medical History Condition Response Hospitalizations N Emergency room visit since last appointm ent. N Gynecological History Statement/Question Response Date of Last Pap Smear Most Recent Mammogram Obstetrics History GPAL:G 0 P 0 0 0 0 Immunizations Vaccine Type Date Status Note Provider Nam e and Address Organization Details Recorded Time MMR 6 completed Nini Lemuel null, [employer] 06/30/2023 13:50:49 Tdap 6 completed Nini [place] null, [employer] 06/30/2023 13:50:49 varicella 2 completed Nini [place] null, [employer] 06/30/2023 13:50:49 Influenza, split virus, trivalent, preservative 6 completed Nini Lemuel null, [employer] 06/30/2023 13:50:49 Influenza, split virus, trivalent, preservative 2 completed Nini [place] null, [employer] 06/30/2023 13:50:50 Td (adult), 2 Lf tetanus toxoid, preservative free, adsorbed 3 completed Nini Lemuel null, [employer] 06/30/2023 13:50:50 Hep B, adolescent or pediatric 3 completed Nini Lemuel null, [employer] 06/30/2023 13:50:50 Hep B, adolescent or pediatric 2 completed Nini [place] null, [employer] 06/30/2023 13:50:50 Hep B, adolescent or pediatric 2 completed Nini [place] null, [employer] 06/30/2023 13:50:50 Past Encounters Encounter ID Performer Location Encounter Start Date Encounter Closed Date Diagnosis/Indication Diagnosis SNOMED-CT Code Diagnosis ICD10 Code Diagnosis IMO Codes Diagnosis Note [id number] Oksana Clark [place] [address] 0 06/23/2025 14:12:13 06/23/2025 16:19:49 Tuberculosis screening status 005873085 Z11.1 868754 Patient informed to RTC in 48-72 hrs to have reading. Influenza vaccination declined 193161473 Z28.21 8426683406 Mild depression 25120318 3 F32.A 184925 History an d physical examination, annual for health maintenance 83150961 Z00.00 8339994096 Body mass index 40+ - severely obese 980313221 Z68.41 [id number] Oksana Clark APRN [place] [id number] 0 06/26/2025 08:18:08 06/26/2025 08:33:46 Follow-up status 391526007 Z11.1 [id number] Health Concerns Section Related Observation LastModified by Organization Detai ls LastModified Time None Recorded Concern Status LastModified by Organization Details LastModified Time None Recorded Payers Encounter Date Sequence Insurance Name Policy Number Policy [place] Covered Member ID [place] Member ID Guarantor Name 06/26/2025 1 *SELF PAY* Em vita Aleman OBGyn Episode No OBEpisode recorded.
--- OUTSIDE RECORDS SUMMARY | 2025-08-22 17:03 | XMS_ITS | Data Portability ---
Author Organization [facility] [employer] [facility] Address [address] [place] [address] Assessment No assessment recorded. Plan of Treatment Reminders Order Date Submit Date Provider Last Modified By Organization Details Last Modified Time Details Appointments FOLLOW UP 2025 01:00P M Susan Clark APRN Not available Not available Not available Lab unlisted lab - toxassure flex 19, [id number] 2024 025 [facility], [address] [place] [address], [id number], 08/20/2025 12:08:32 PPD (purified protein derivativ e), skin test [address], [address] [place] [address], [phone], 06/26/2025 13:21:15 vitamin D, 25-hydrox y, total, serum 2023 024 [facility], [address], [place], [address], 02/09/2024 07:01:12 lipid panel, serum 2023 024 [facility], [address], [place], [address], 02/09/2024 07:01:10 CMP, serum or plasma 2023 024 [facility], [address], [place], [address], 02/09/2024 07:01:10 CBC w/ auto diff 2023 024 [employer] [facility], [address], [place], [address], 02/09/2024 07:01:11 TSH, serum or plasma 2023 024 [employer] [facility], [address], [place], [address], 02/09/2024 07:01:11 Referral None recorded. Procedures None recorded. Surgeries None recorded. Imaging None recorded. Medication Orders escitalop brii 10 mg tablet 2024 025 [facility], [address] [place] [address], [id number], 08/15/2025 10:11:10 Xanax 0.25 mg tablet 2024 025 [facility], [address] [place] [address], [id number], 08/15/2025 10:11:10 Aplisol 5 tub. unit/0.1 mL intraderm al injection solution [address], [address] [place] [address], [id number], 08/15/2025 08:50:38 fluoxetin e 20 mg capsule 2024 025 [facility], [address] [place] [address], [id number], 08/15/2025 09:50:56 Zithromax Z-Ayan 250 mg tablet [address] [employer] [facility], [address] [place] [address], [id number], 06/23/2025 14:37:05 albuterol sulfate 2.5 mg/3 mL (0.083 %) solution for nebulizat ion 2023 024 [employer], [address] [place] [address], [id number], 02/17/2024 11:46:22 cetirizin e 10 mg tablet 2023 024 [employer], [address] [place] [address], [id number], 02/10/2024 11:27:14 losartan 50 mg-hydroc hlorothia zide 12.5 mg tablet 2023 024 [employer], [address] [place] [address], [id number], 06/23/2025 14:37:34 Patient TargetsNo targets recorded. Patient Instructions Encounter Date Encounter Id Patient Instructions Last Modified By Organization Details Last Modified Time 08/15/2025 [id number] controlled [facility] agreement* [email or web address] Not [facility] 08/15/2025 09:41:43 mental health assessment* MAYELA Not available 08/18/2025 12:54:05 MHI Packet Adult [email or web address] Not available 08/15/2025 13:36:06 Reason for Referral None Reported. Results Created Date Observation Date Name Description Value Unit Range Abnormal Flag Note LastModifiedBy Organization Detail LastModifiedTime 02/08/2002/09/2024 LIPID PANEL , STAND MARIA cholesterol, total 197 mg/dL <200 normal Not Available [facility] [place] [facility] [address] [facility] [place], [address], 02/09/2024 07:01:10 02/08/20 24 02/09/2024 LIPID PANEL , STAND MARIA HDL cholesterol 41 mg/dL > or = 50 low Not Available [facility] [place] [facility] [address] [facility] [place], [address], 02/09/2024 07:01:10 02/08/20 24 02/09/2024 LIPID PANEL , STAND MARIA triglyceride s 115 mg/dL <150 normal Not Available [facility] [place] [facility] [address] [place], [address], 02/09/2024 07:01:10 02/08/20 24 02/09/2024 LIPID PANEL , STAND MARIA LDL-choleste rol 133 mg/dL _(александр c) high Refer ence range : <100 Marga able range <100 mg/dL for prima ry preve ntion ; <70 mg/dL for patie nts with CHD or diabe tic patie nts with > or = 2 CHD risk facto rs. LDL-C is now calcu lated using the Cathy n-Hop kins calcu latio n, which is a valid ated novel metho d provi ding shawnee r accur acy than the Fried evan equat ion in the estim ation of LDL-C . Cathy french SS et al. PEG. 2013; 310(1 9): 2061- 2068 (http ://ed ucati on.[place] [employer] estSpor. com/f aq/FA Q164) Not Available [facility] [place] [facility] [address] [facility], [place], [address], 02/09/2024 07:01:10 02/08/20 24 02/09/2024 LIPID PANEL , STAND MARIA chol/HDLC ratio 4.8 (calc ) <5.0 normal Not Available [facility] [place] [facility] [address] [facility], [place], [address], 02/09/2024 07:01:10 02/08/20 24 02/09/2024 LIPID PANEL , STAND MARIA non HDL cholesterol 156 mg/dL _(александр c) <130 high For patie nts with diabe malena plus 1 major ASCVD risk facto r, treat ing to a non-H DL-C goal of <100 mg/dL (LDL- C of <70 mg/dL ) is consi dered a thera peuti c optio n. Not Available [facility] [address] [place], [address], 02/09/2024 07:01:10 02/08/20 24 02/09/2024 COMPR EHENS TAYLOR METAB OLIC PANEL glucose 90 mg/dL 65-139 normal Non-f astin g refer ence inter ramonita Not Available [facility] [address] [place], [address], 02/09/2024 07:01:10 02/08/20 24 02/09/2024 COMPR EHENS TAYLOR METAB OLIC PANEL urea nitrogen (BUN) 12 mg/dL 7-25 normal Not Available [facility] [address] [place], [address], 02/09/2024 07:01:10 02/08/20 24 02/09/2024 COMPR EHENS TAYLOR METAB OLIC PANEL creatinine 0.79 mg/dL 0.50-0 .97 normal Not Available [facility] [address] [place], [address], 02/09/2024 07:01:10 02/08/20 24 02/09/2024 COMPR EHENS TAYLOR METAB OLIC PANEL eGFR 101 mL/mi n/1.7 3m2 > or = 60 normal Not Available [facility] [address] [place], [address], 02/09/2024 07:01:10 02/08/20 24 02/09/2024 COMPR EHENS TAYLOR METAB OLIC PANEL BUN/creatini ne ratio SEE NOTE: (calc ) 6-22 Not Repor mazin: BUN and Creat inine are withi n refer ence range . Not Available [facility] [address] [place], [address], 02/09/2024 07:01:10 02/08/20 24 02/09/2024 COMPR EHENS TAYLOR METAB OLIC PANEL sodium 136 mmol/ L 135-14 6 normal Not Available [facility] [address] [place], [address], 02/09/2024 07:01:10 02/08/20 24 02/09/2024 COMPR EHENS TAYLOR METAB OLIC PANEL potassium 4.1 mmol/ L 3.5-5. 3 normal Not Available [facility] [address] [place], [address], 02/09/2024 07:01:10 02/08/20 24 02/09/2024 COMPR EHENS TAYLOR METAB OLIC PANEL chloride 101 mmol/ L 98-110 normal Not Available [facility] [address] [place], [address], 02/09/2024 07:01:10 02/08/20 24 02/09/2024 COMPR EHENS TAYLOR METAB OLIC PANEL carbon dioxide 26 mmol/ L 20-32 normal Not Available [facility] [address] [place], [address], 02/09/2024 07:01:10 02/08/20 24 02/09/2024 COMPR EHENS TAYLOR METAB OLIC PANEL calcium 9.1 mg/dL 8.6-10 .2 normal Not Available [facility] [address] [place], [address], 02/09/2024 07:01:10 02/08/20 24 02/09/2024 COMPR EHENS TAYLOR METAB OLIC PANEL protein, total 6.9 g/dL 6.1-8. 1 normal Not Available [facility] [address] [place], [address], 02/09/2024 07:01:10 02/08/20 24 02/09/2024 COMPR EHENS TAYLOR METAB OLIC PANEL albumin 3.9 g/dL 3.6-5. 1 normal Not Available [facility] [address] [place], [address], 02/09/2024 07:01:10 02/08/20 24 02/09/2024 COMPR EHENS TAYLOR METAB OLIC PANEL globulin 3.0 g/dL_ (calc ) 1.9-3. 7 normal Not Available [facility] [address] [place], [address], 02/09/2024 07:01:10 02/08/20 24 02/09/2024 COMPR EHENS TAYLOR METAB OLIC PANEL albumin/glob ulin ratio 1.3 (calc ) 1.0-2. 5 normal Not Available [facility] [address] [place], [address], 02/09/2024 07:01:10 02/08/20 24 02/09/2024 COMPR EHENS TAYLOR METAB OLIC PANEL bilirubin, total 0.6 mg/dL 0.2-1. 2 normal Not Available [facility] [address] [place], [address], 02/09/2024 07:01:10 02/08/20 24 02/09/2024 COMPR EHENS TAYLOR METAB OLIC PANEL alkaline phosphatase 61 U/L 31-125 normal Not Available [facility] [address] [place], [address], 02/09/2024 07:01:10 02/08/20 24 02/09/2024 COMPR EHENS TAYLOR METAB OLIC PANEL AST 15 U/L 10-30 normal Not Available [facility] [place], [address], 02/09/2024 07:01:10 02/08/20 24 02/09/2024 COMPR EHENS TAYLOR METAB OLIC PANEL ALT 8 U/L 6-29 normal Not Available [facility] [employer] [facility] [address] [place], [place] [address], [place], [address], 02/09/2024 07:01:10 02/08/20 24 02/09/2024 CBC (INCL UDES DIFF/ PLT) white blood cell count 13.5 thous and/u L 3.8-10 .8 high Not Available [facility] [address] [place], [address], 02/09/2024 07:01:11 02/08/20 24 02/09/2024 CBC (INCL UDES DIFF/ PLT) red blood cell count 4.46 valdo on/uL 3.80-5 .10 normal Not Available [facility] [address] [place], [address], 02/09/2024 07:01:11 02/08/20 24 02/09/2024 CBC (INCL UDES DIFF/ PLT) hemoglobin 14.3 g/dL 11.7-1 5.5 normal Not Available [facility] [address] [place], [address], 02/09/2024 07:01:11 02/08/2002/09/2024 CBC (INCL UDES DIFF/ PLT) hematocrit 42.8 % 35.0-4 5.0 normal Not Available [facility] [address] [place], [address], 02/09/2024 07:01:11 02/08/2002/09/2024 CBC (INCL UDES DIFF/ PLT) MCV 96.0 fL 80.0-1 00.0 normal Not Available [facility] [address] [place], [address], 02/09/2024 07:01:11 02/08/20 24 02/09/2024 CBC (INCL UDES DIFF/ PLT) MCH 32.1 pg 27.0-3 3.0 normal Not Available [facility] [address], [place], [address], 02/09/2024 07:01:11 02/08/20 24 02/09/2024 CBC (INCL UDES DIFF/ PLT) MCHC 33.4 g/dL 32.0-3 6.0 normal Not Available [facility] [place] [facility] [address], [place], [address], 02/09/2024 07:01:11 02/08/20 24 02/09/2024 CBC (INCL UDES DIFF/ PLT) RDW 12.1 % 11.0-1 5.0 normal Not Available [facility] [place] [facility] [address], [place], [address], 02/09/2024 07:01:11 02/08/20 24 02/09/2024 CBC (INCL UDES DIFF/ PLT) platelet count 288 thous and/u L 140-40 0 normal Not Available [facility] [place] [facility] [address], [place], [address], 02/09/2024 07:01:11 02/08/2002/09/2024 CBC (INCL UDES DIFF/ PLT) MPV 9.3 fL 7.5-12 .5 normal Not Available [facility] [place] [facility] [address], [place], [address], 02/09/2024 07:01:11 02/08/20 24 02/09/2024 CBC (INCL UDES DIFF/ PLT) absolute neutrophils 7614 cells /uL 1500-7 800 normal Not Available [facility] [place] [facility] [address], [place], [address], 02/09/2024 07:01:11 02/08/20 24 02/09/2024 CBC (INCL UDES DIFF/ PLT) absolute lymphocytes 4752 cells /uL 850-39 00 high Not Available [facility] [place] [facility] [address], [place], [address], 02/09/2024 07:01:11 02/08/20 24 02/09/2024 CBC (INCL UDES DIFF/ PLT) absolute monocytes 797 cells /uL 200-95 0 normal Not Available [facility] [place] [facility] [address], [place], [address], 02/09/2024 07:01:11 02/08/20 24 02/09/2024 CBC (INCL UDES DIFF/ PLT) absolute eosinophils 257 cells /uL 15-500 normal Not Available [facility] [place] [facility] [address] [facility], [place], [address], 02/09/2024 07:01:11 02/08/20 24 02/09/2024 CBC (INCL UDES DIFF/ PLT) absolute basophils 81 cells /uL 0-200 normal Not Available [facility] [place] [facility] [address] [facility], [place], [address], 02/09/2024 07:01:11 02/08/20 24 02/09/2024 CBC (INCL UDES DIFF/ PLT) neutrophils 56.4 % normal Not Available [facility] [place] [facility] [address] [facility], [place], [address], 02/09/2024 07:01:11 02/08/20 24 02/09/2024 CBC (INCL UDES DIFF/ PLT) lymphocytes 35.2 % normal Not Available [facility] [place] [facility] [address] [facility], [place], [address], 02/09/2024 07:01:11 02/08/20 24 02/09/2024 CBC (INCL UDES DIFF/ PLT) monocytes 5.9 % normal Not Available [facility] [place] [facility] [address] [facility], [place], [address], 02/09/2024 07:01:11 02/08/20 24 02/09/2024 CBC (INCL UDES DIFF/ PLT) eosinophils 1.9 % normal Not Available [facility] [address] [place], [address], 02/09/2024 07:01:11 02/08/20 24 02/09/2024 CBC (INCL UDES DIFF/ PLT) basophils 0.6 % normal Not Available [facility] [address] [place], [address], 02/09/2024 07:01:11 02/08/20 24 02/09/2024 TSH W/REF KATELYNN TO FT4 TSH w/reflex to FT4 1.74 mIU/L normal Refer ence Range > or = 20 Years 0.40- 4.50 Pregn ashok Range s First trime ster 0.26- 2.66 Secon d trime ster 0.55- 2.73 Third trime ster 0.43- 2.91 Not Available [facility] [address] [place], [address], 02/09/2024 07:01:11 02/08/20 24 02/09/2024 VITAM IN D,25- OH,TO JUNE,I A vitamin D,25-oh,tota l,ia 31 NG/mL 30-100 normal Vitam in D Statu s 25-OH Vitam in D: Defic iency : <20 ng/mL Insuf ficie ncy: 20 - 29 ng/mL Optim al: > or = 30 ng/mL For 25-OH Vitam in D testi ng on patie nts on D2-santos pplem entat ion and patie nts for whom quant itati on of D2 and D3 fract ions is requi red, the [facility] Assur eD(TM ) 25-OH VIT D, (D2,D 3), LC/MS /MS is recom sunita d: order code 40474 (keily ents >2yrs ). See Note 1 Note 1 For addit ional infor jose trevino e refer to http: //michael french.Que stDia gnost ics.c om/fa q/FAQ 199 (This link is being provi ded for infor matio nal/ educa tatiana l purpo ses only. ) Not Available [facility] [place] [facility] [address] [facility], [place], [address], 02/09/2024 07:01:12 06/26/20 25 06/26/2025 PPD (getachew fied prote in deriv ative ), skin test TB negati ve Not Available [facility] - [address], [place], [address], 06/26/2025 08:33:05 02/11/20 24 02/11/2024 XR, chest No observ ation record ed. [address], [place], [address], 02/12/2024 16:15:13 02/12/20 24 02/11/2024 [facility] No observ ation record ed. [address], [place], [address], 02/12/2024 16:15:27 06/03/20 24 06/03/2024 CT, angio gram, chest , w/o contr ast No observ ation record ed. [address], [place], [place], [address], 06/04/2024 11:02:17 06/06/20 24 06/03/2024 [facility] No observ ation record ed. [place] [address], [place], [address], 06/07/2024 08:09:38 Result Notes None recorded. Problems Name Problem SNOMED Code Status Onset Date Resolution Date Notes Provider Name and Address Organization Details Recorded Time Elevated blood-pr essure reading without diagnosi s of hyperten amanda [id number] Completed 202011/04/2022 MALORIE Singh - [facility] 09:10:24 Exposure to sexually transmis sible disorder Completed 202011/04/2022 Problem Code: Z20.2; Problem Code Type: ICD-10; SOL colunga [employer] 09:10:24 Tobacco dependen ce caused by cigarett es 59787581109 249907 Active 2020 Problem Code: F17.210; Problem Code Type: ICD-10; Not Available [facility] 21:58:36 Finding of body mass index 070452049 Active 2020 Problem Code: Z68.41; Problem Code Type: ICD-10; Not Available [facility] 21:58:37 Dental caries 67548367 Active 2022 Porsha Oakes PA-C [address] [place] [address], [address] , [employer] 10:00:17 Problem Notes None recorded. Procedures Surgical History Date Name Laterality Status Provider Name and Address Organization Details Recorded Time 05/19/20 ligation of bilateral fallopian tubes completed Not Available [facility] 05/03/2022 22:56:23 05/19/20 tonsillectomy and adenoidectomy completed Not Available [facility] 05/03/2022 22:56:25 Imaging Results None recorded. [...] 1 CM RIBBON INTO THE LOWER CONJUNCTI RAMONITA SAC(S) IN THE AFFECTED EYE(S) BY OPHTHALMI [...] and Address Organization Details Last Updated DateTime 4 182.88 cm 43.4 kg/m2 408104. 56 g 86 /min 94 % 124/83 mm[Hg] L2C 4 14:52:02 Date Recorded Body height Body mass index (BMI) Body weight Heart rate Oxygen saturation Systolic And Diastolic Provider Name and Address Organization Details Last Updated DateTime 4 182.88 cm 43.3 kg/m2 321187. 97 g 94 /min 95 % 122/78 mm[Hg] L2C 4 16:18:23 Date Recorded Body weight Body mass index (BMI) Body height Heart rate Oxygen saturation Systolic And Diastolic Provider Name and Address Organization Details Last Updated DateTime 5 688238 g 42.6 kg/m2 182.88 cm 65 /min 95 % 123/81 mm[Hg] [employer]ty [employer] 5 14:36:56 Date Recorded Body height Provider Name an d Address Organization Details Last Updated DateTime 06/26/2025 182.88 cm Lucretia Davila [employer] 06/26/2025 08:24:38 Date Recorded Body height Body mass index (BMI) Body weight Heart rate Oxygen saturation Systolic And Diastolic Provider Name and Address Organization Details Last Updated DateTime 5 182.88 cm 42.6 kg/m2 146096 g 71 /min 95 % 127/86 mm[Hg] [employer] 5 08:54:56 Social History Question Answer Notes LastModified by Organizat ion Details LastModified Time Tobacco Smoking Status Current Every Day Smoker Nini colunga, [facility] [employer] 06/30/2023 13:51:21 Do You Have An Advance Directive? No [email or web address] Information not available 07/01/2023 Is Your Home Air Conditioned? Yes [email or web address] Information not available 07/01/2023 Are You Blind Or Do You Have Difficulty Seeing? No Information not available 05/19/2023 What Is Your Level Of Caffeine Consumption? Occasional [email or web address] Information not available 07/01/2023 In The 14 [...] Or Recreational Drugs Have You Used? Marijuana [email or web address] Information not available 07/01/2023 Who Is Your Employer? [employer] [email or web address] Information not available 07/01/2023 Have There Been Any Changes To Your Family Or Social Situation? No Information no t available 05/19/2023 Are There Any Guns Present In Your Home? No [email or web address] Information not available 07/01/2023 Which Of Your Hands Is Dominant? Right Information not available 05/19/2023 What Is Your Home Situation? Other Information not available 05/19/2023 Do You Have A Medical Power Of Ore Grader? No [email or web address] Information not available 07/01/2023 What Was The [...] Carbon Monoxide Detectors In Your Home? Yes [email or web address] Information not available 07/01/2023 At What Age Did You Start Smoking Tobacco? 18 Information not available 05/19/2023 Are You Passively Exposed To Smoke? Yes Information no t available 07/01/2023 Are There Any Smokers In Your House? Yes [email or web address] Information not available 07/01/2023 How Much Tobacco Do You Smoke? 1 PPD Information not available 05/19/2023 Do You Use Sunscreen Routinely? No [email or web address] Information not available 07/01/2023 Has Tobacco Cessation [...] use any illicit or recreational drugs? Yes [email or web address] Information not available 07/01/2023 Do you or have you ever used any other forms of tobacco or nicotine? No Information not available 05/19/2023 What is your level of alcohol consumption? None Information not available 05/19/2023 Are you currently employed? Yes Information not available 05/19/2023 Do you have transportation difficulties? No [email or web address] Information not available 07/01/2023 Are you able [...] Time Father Family history of hyperlipidem ia [email or web address] Not available 11/2022 09:48:01 Father Family history of drug abuse [email or web address] Not available 09:48:07 Father Family history of Hypertension Not available 07/01/2023 09:48:22 Father Family history of ischemic heart disease [email or web address] Not available 11/2022 09:48:41 Paternal Grandfather Family history of diabetes mellitus type 2 [email or web address] Not available 11/2022 09:48:13 Paternal Grandfather Family history of Hypertension [email or web address] Not available 07/01/2023 09:48:27 Paternal Grandmother Family history of diabetes mellitus type 2 Not available 11/2022 09:48:16 Paternal Grandmother Family history of Hypertension [email or web address] Not available 07/01/2023 09:48:29 Mother Congenital heart disease [email or web address] Not available 11/2022 09:49:06 Medical History Condition Response Hospitalizations N Emergency room visit since last appointm ent. N Gynecological History Statement/Question Response Date of Last Pap Smear Most Recent Mammogram Obstetrics History GPAL:G 0 P 0 0 0 0 Immunizations Vaccine Type Date Status Note Provider Nam e and Address Organization Details Recorded Time MMR 6 completed Nini colunga [facility] [employer] 06/30/2023 13:50:49 Tdap 6 completed Nini [place] null, [employer] 06/30/2023 13:50:49 varicella 2 completed Nini [place] null, [employer] 06/30/2023 13:50:49 Influenza, split virus, trivalent, preservative 6 completed Nini [place] null, [employer] 06/30/2023 13:50:49 Influenza, split virus, trivalent, preservative 2 completed Nini [place] null, [employer] 06/30/2023 13:50:50 Td (adult), 2 Lf tetanus toxoid, preservative free, adsorbed 3 completed Nini [place] null, [employer] 06/30/2023 13:50:50 Hep B, adolescent or pediatric 3 completed Nini [place] null, [employer] 06/30/2023 13:50:50 Hep B, adolescent or pediatric 2 completed Nini [place] null, [employer] 06/30/2023 13:50:50 Hep B, adolescent or pediatric 2 completed Nini [place] null, [employer] 06/30/2023 13:50:50 Past Encounters Encounter ID Performer Location Encounter Start Date Encounter Closed Date Diagnosis/Indication Diagnosis SNOMED-CT Code Diagnosis ICD10 Code Diagnosis IMO Codes Diagnosis Note [id number] Oksana Clark APRN [address] [address] 05/05/2023 08:59:10 05/05/2023 10:11:26 Fatigue 97226573 R53.83 Hyperlipidemia 84593603 E78.5 Hyperglycemia 64828029 R 73.9 Vitamin D deficiency 347 47564 E55.9 Vitamin B deficiency 479 42326 E53.9 Conjunctivitis 6961669 H 10.9 Essential hypertension 55445641 I10 Body mass index 40+ - severely obese 996918342 Z68.43 [id number] [place] [address] 0 05/19/2023 08:32:01 05/19/2023 09:17:56 Vitamin D deficiency 59675618 E55.9 Essential hypertension 68351384 I10 Body mass index 40+ - severely obese 508939835 Z68.43 [id number] [place] [address] 0 05/26/2023 10:30:59 05/26/2023 10:46:53 [id number] [place] [address] 0 06/21/2023 14:05:45 06/21/2023 17:00:37 Adult health examination 427399407 Z00.00 Counseled regarding prevention of STD's . Counseled regarding contracept taylor options . Advised avoidance of tobacco, alcohol, and drugs . Counseled regarding folic acid supplement ation, calcium needs and prevention of osteoporos is . BSE reviewed and recommende d. Tuberculos is screening 865523369 Z11.1 Body mass index 40+ - severely obese 092133457 Z68.41 Healthy diet and aerobic exercise and weight loss were emphasized . Tobacco de pendence caused by cigarettes 3993399084 1239246 F17.210 Smoking cessation encouraged . [id number] [place] [address] 0 06/30/2023 13:37:14 06/30/2023 14:24:21 Acute upper respiratory infection 79892178 J06.9 Patient presented with symptoms of upper respirator y infection. Advised to drink plenty of fluids, run a cool-mist humidifier in room at night, gargle salt water for sore throat, and get plenty of rest. Patient should avoid over-exert ion and reduce exposure to irritants such as smoke, cold, dry air, and dust. Treatment currently involves symptomati c relief. Patient may take acetaminop hen or ibuprofen as directed to reduce fever and body aches. Antihistam ine and decongesta nt usage was discussed and recommenda tions made. Patient understood these instructio ns and will follow up in the office in 10 days to 2 weeks if symptoms not improving. [id number] Porsha Oakes PA-C [place] [address] 0 07/01/2023 09:42:59 07/01/2023 10:22:53 Dental caries 41166691 K02.9 Obtain dental appointmen t MERE. Monitor for worsening s/s [id number] Oksana Clark [place] [address] 0 09/12/2023 15:59:05 09/12/2023 16:29:33 Vitamin D deficiency 55397117 E55.9 Essential hypertension 28486830 I10 Body mass index 40+ - severely obese 673951208 Z68.43 [id number] [place] [address] 0 02/08/2024 14:43:51 02/08/2024 15:40:58 Fatigue 14645191 R53.83 Hyperlipidemia 17565022 E78.5 Vitamin D deficiency 347 73018 E55.9 Essential hypertension 04347754 I10 Body mass index 40+ - severely obese 484765985 Z68.43 Allergic rhinitis 995055 04 J30.9 [id number] Oksana Clark [place] [address] 0 02/16/2024 16:08:41 02/16/2024 16:42:48 Acute bronchitis 10093351 J20.9 Body mass index 40+ - severely obese 562364054 Z68.43 [id number] Oksana Clark [place] [address] 0 06/23/2025 14:12:13 06/23/2025 16:19:49 Tuberculosis screening status 303579461 Z11.1 517302 Patient informed to RTC in 48-72 hrs to have reading. Influenza vaccination declined 286895817 Z28.21 6901514652 Mild depression 88533467 3 F32.A 502848 History an d physical examination, annual for health maintenance 08594136 Z00.00 5916223173 Body mass index 40+ - severely obese 185354699 Z68.41 246445 [id number] [place]ana [place] [address] 0 06/26/2025 08:18:08 06/26/2025 08:33:46 Follow-up status 731173634 Z11.1 21269814 [id number] [place] [address] 0 08/15/2025 08:32:25 08/15/2025 09:54:18 Severe depression 354316322 F32.2 483687 Anxiety 61888671 F41.8 3094060 Therapeuti c drug monitoring assay 30547243 Z51.81 0172913 Fatigue 50818235 R53.83 3073777 Counseling 844943409 Z71 .9 Body mass index 40+ - severely obese 628197989 Z68.41 289384 Health Concerns Section Related Observation LastModified by Organization Detai ls LastModified Time None Recorded Concern Status LastModified by Organization Details LastModified Time None Recorded Advance Directives Directive N: Payers Insurance Date Sequence Insurance Name Policy Number Policy [place]aux Covered Member ID Thibodeaux Member ID Guarantor Name 05/05/2023 1 *SELF PAY* Erin vita Aleman 07/15/2025 SLIDING FEE SCHEDULE - DISCOUNT Cara Ash 06/23/2025 1 [employer] [facility]ID [facility]PLAC[facility] - HMO) Cara Aleman [id number] Cara Aleman 07/15/2025 SLIDING FEE SCHEDULE - DISCOUNT Cara Aleman 08/18/2025 1 *SELF PAY* Erin Aleman 08/18/2025 1 [employer] [facility] (MEDICAID HMO) Cara Aleman [id number] Cara Aleman Notes Date Note Type Note Provider Name and Address Organization Details Recorded Time 02/08/2024 text/html pt here today for medication refills. pt states shes doing well on current medication regime. pt states that she has been having increased seasonal allergies and is requesting allergy med. Oksana Clark APRN [address] [place] [address], [phone], [employer]. 02/08/2024 15:27:08 02/16/2024 text/html pt here tjoday with c/o cough and chest congestion for around a week. pt states that she feels like someone threw her in a sorensen and she is in water. pt states that she has been using her inhaler alot at work today. on exam, lungs with I/E wheeze and decreased lungs sounds. ordered abx and neb machine to use PRN. pt states that she went to ER 6 days ago because she couldnt breath and a cxray and EKG was done and was normal and she was given steroids and neb treatment. and felt better. pt states that she was prescribed 50mg of oral steroids x5 days and she thinks thats too much and it has made her sick. pt states that she has 10 tabs left and wants to know what to do because shes just not going to take that many. advised pt to take 3 tabs per day x3 days. and 1 tab on the last day. Oksana Clark APRN [address] [place], [address], [employer], [employer]. 02/16/2024 17:15:00 06/23/2025 text/html Annual WellnessReported by Patient pt here today for an AWV for work and tb skin test. pt works at the [employer] for around 2 years. pt states that she is doing well at work. states that she does not take the bp med anymore. her bp has came down and has been doing well with that. pt states that her mother passes away in apr and she has been having a hard time with that. states that she on her birthday and her mother passes away on her birthday. and that pt birthday is coming up and she has in her mind that she is going to pass away on her birthday as well. pt is very tearful in stating that she misses her mom. states that she does have anxiety and depression. states that she is quick to snap at people lately and that just isnt her. pt states she has tried wellbutrin for smoking and it didnt do anything and buspar for anxiety and it did help some. i am going to order prozac. educated pt on new med. pt voiced understanding. pt states that she doesnt have insurance. sent a pt case to [facility] to see if she can help. Oksana Clark APRN [address] [place], [address], [employer], [employer]. 06/23/2025 15:23:16 08/15/2025 text/html pt here today for a [...] help. states that she has battled with anxiety/depression before but has gotten worse since her mother has . states that she does not feel agitated but puts on a happy face for her son but feels that she could do more things with him if she wasnt so depressed. pt states that her mother got into a MVA and was in for 14 days then sent to a PA where she fell OOB and broke her [...] see how new meds are working. Oksana Clark APRN [address] [place], [address], [employer]. 08/15/2025 13:36:29 OBGyn Episode No OBEpisode recorded.
--- OUTSIDE RECORDS SUMMARY | 2025-08-22 17:03 | XMS_ITS | Clinical Summary ---
Author Organization [facility] Address [address] [place] [address] Care Team Providers Care Public Administration Teacher Name Role Phone Whit Galvan Primary Care Provider [phone] Allergies No known active allergies Medications docusate [...] Protein S deficiency of 201512/20/2016 Overview (01/03/2017): Sane Nurse: Mario Fernández MD, MA, FACP, [place] Protein S Deficiency of 2015 Summary: During acute DVT/PE the patient was found to have a low Protein S activity and level while on anticoagulation in 2015 that resolved after she was off anticoagulation. Contraindication to Warfarin of 201609/22/2016 Overview (09/27/2016): Sane Nurse: Mario Fernández MD, MA, FACP, [place] Contraindication to Warfarin of 2016 Summary: Despite repeating testing and adjustment of warfarin to maintain an INR 2-3 the patient could not be kept at a therapeutic level by 2016. B12 deficiency of 201507/12/2016 Overview (06/23/2020): Sane Nurse: Mario Fernández MD, MA, FACP B12 Deficiency [...] Embolism of May 2016 06/06/2016 Overview (01/05/2017): Sane Nurse: Mario Fernández MD, MA, FACP, [place] Pulmonary Embolism During Post- Period of May [...] of July 29 011 07/30/2011 Overview (06/07/2016): Sane Nurse: Mario Fernández MD, MA, FACP Pulmonary Embolus [...] DVT and PE. She was hospitalized at [facility] ([place], [place]). Treatment She was treated with heparin and discharged on enoxaparin and oxygen. She continued on enoxaparin during her entire . She delivery a healthy baby on 02 February 2011. While taking enoxaparin as prescribed (150 mg/sub cu q day) she redeveloped PE in October 2011. An IVC filter was placed. Hypercoagulable state of 05 July 19901989 Overview (08/02/2020): Sane Nurse: Mario Fernández MD, MA, FACP, [place] Hypercoagulable State of 1990 Summary: The patient's [...] Immunizations Immunization Administration Dates Next Due Influenza [facility] Inpatient 05/26/2016 Tdap 05/03/2016 Family History Medical [...] Health Maintenance Due Date Last Done Comments Cervical Cancer Screening 10/20/2018 10/20/2015 Annual SDOH Screening 08/28/2024 Influenza Vaccine (#1) 2025 6, 05/26/2016, 05/31/2012 Tdap/Td Vaccine >11 yo (3 - Td or Tdap) 05/03/2026 05/03/2016, 10/04/2002 Hepatitis B (HepB) Vaccine Completed 10/04, 04/30/2002, 04/02/2002 HPV Vaccine (No Doses Required) Completed Haemophilus Influenzae Type B (Hib) Vaccine Aged [...] 10/29/2015 8:44 AM EST [facility] [address] [place] [address] * Clinician: Patient Name: Accession Number: MD FAITH ODONNELL EMILY F [id number] [facility] - Collected: SAGE : 1990 10/20/2015 [address] [facility] Sex: F Received: [address] Chart #: 10/20/2015 [place] [address]- Reported: 10/29/2015 GYNECOLOGIC CYTOLOGY REPORT Final Report DIAGNOSIS: NEGATIVE (NO EVIDENCE OF INTRAEPITHELIAL LESION OR MALIGNANCY) SPECIMEN ADEQUACY: SATISFACTORY FOR EVALUATION: ENDOCERVICAL MATERIAL PRESENT SPECIMEN SOURCE: THIN PREP CERVICAL/ENDOCERVICAL MENSTRUAL STATUS: LMP: 08/30/2015 : Y CPT Codes: (Tech) - 81378, x1 SMALL ELECTRIC ENGINE TECHNICIAN: THERON HORN (ASCP) QC REVIEW : THERON SIMONASCP) <Sign Out Signature> SIGNED OUT BY: THERON SIMONASCP) PRIOR PATIENT HISTORY: Pap smear testing is subject to false negative and false positive results. This result should be interpreted in conjunction with history and clinical findings. ThinPrep specimens have been analyzed by the ThinPrep Imaging System (magnetU), an automated imaging and review system. Luis Miguel Romero M.D. - Rewards Consultant Shyam Mello M.D. - Director of Cytopathology us Ines Vega MD PATHOLOGY/CYTOLOGY STEVE LEMUS Final Result [facility] [address] [place] [address] from Last 3 Months or Most Recently Relevant to Health Maintenance Insurance [address] [place] [address] BY PO BY PO Advance Directives Documents on File Type Date Recorded Patient Ripening Room Attendant Expl anation MOST Form 01/12/2017 10:57 AM * Full Code (Latest Code Status on File) Date Activated Date Inactivated Comments 06/07/2016 2:40 AM 06/10/2016 4:32 PM * Full Code Date Activated Date Inactivated Comments 05/26/2016 1:06 AM 05/27/2016 4:36 PM * Full Code Date Activated Date Inactivated Comments 05/25/2016 10:39 AM 05/26/2016 1:06 AM Care Teams Public Administration Teacher Relationship Specialty Start Date End Date Whit Galvan PA PCP - General Physician [facility] 06/07/16
--- OUTSIDE RECORDS SUMMARY | 2025-08-22 17:03 | XMS_ITS | Continuity of Care Document ---
Author Organization [facility] [employer], César [facility] Address [address] [place] [phone] Assessment No assessment recorded. Plan of Treatment Reminders Order Date Submit Date Provider Last Modified By Organization Details Last Modified Time Details Appointments FOLLOW UP 2025 01:00P M Susan Clark APRN Not available Not available Not available Lab None recorded. Referral None recorded. Procedures None recorded. Surgeries None recorded. Imaging None recorded. Medication Orders Aplisol 5 tub. unit/0.1 mL intraderm al injection solution 2024 025 [facility], [address] [place], [place], [id number], 08/15/2025 08:50:38 fluoxetin e 20 mg capsule 2024 025 [facility], [address] [place] [address], [id number], 08/15/2025 09:50:56 Patient TargetsNo targets recorded. Patient InstructionsNo instructions recorded. Reason for Referral None Reported. Problems Name Problem SNOMED Code Status Onset Date Resolution Date Notes Provider Name and Address Organization Details Recorded Time Elevated blood-pr essure reading without diagnosi s of hyperten amanda 646098387 Completed 202011/04/2022 SOL [place] [facility] [employer]. 09:10:24 Exposure to sexually transmis sible disorder Completed 202011/04/2022 Problem Code: Z20.2; Problem Code Type: ICD-10; SOL TOBIASROBERT [place], [employer] 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 3 10:00:17 Problem Notes None recorded. Procedures Surgical History Date Name Laterality Status Provider Name and Address Organization Details Recorded Time 05/19/20 ligation of bilateral fallopian tubes completed Not Available [facility] 05/03/2022 22:56:23 05/19/20 tonsillectomy and adenoidectomy completed Not Available [facility] 05/03/2022 22:56:25 Imaging Results None recorded. Procedure [...] Not Avai lable Vitals Date Recorded Body weight Body mass index (BMI) Body height Heart rate Oxygen saturation Systolic And Diastolic Provider Name and Address Organization Details Last Updated DateTime 5 030536 g 42.6 kg/m2 182.88 cm 65 /min 95 % 123/81 mm[Hg] Ketty Arango [employer]. 14:36:56 Social History Question Answer Notes LastModified by Organizat ion Details LastModified Time Tobacco Smoking Status Current Every Day Smoker Nini [place] [employer]. 06/30/2023 13:51:21 Do You Have An Advance Directive? No [email or web address] Information not available 07/01/2023 Is Your Home Air Conditioned? Yes [email or web address] Information not available 07/01/2023 Are You Blind Or Do You Have Difficulty Seeing? No Information not available 05/19/2023 What Is Your Level Of Caffeine Consumption? Occasional [email or web address] Information not available 07/01/2023 In The 14 [...] Or Recreational Drugs Have You Used? Marijuana [email or web address] Information not available 07/01/2023 Who Is Your Employer? [employer] [email or web address] Information not available 07/01/2023 Have There Been Any Changes To Your Family Or Social Situation? No Information no t available 05/19/2023 Are There Any Guns Present In Your Home? No [email or web address] Information not available 07/01/2023 Which Of Your Hands Is Dominant? Right Information not available 05/19/2023 What Is Your Home Situation? Other Information not available 05/19/2023 Do You Have A Medical Power Of Intellectual Property Paralegal? No Information not available 07/01/2023 What Was The [...] Carbon Monoxide Detectors In Your Home? Yes [email or web address] Information not available 07/01/2023 At What Age Did You Start Smoking Tobacco? 18 Information not available 05/19/2023 Are You Passively Exposed To Smoke? Yes [email or web address] Information no t available 07/01/2023 Are There Any Smokers In Your House? Yes [email or web address] Information not available 07/01/2023 How Much Tobacco Do You Smoke? 1 PPD Information not available 05/19/2023 Do You Use Sunscreen Routinely? No [email or web address] Information not available 07/01/2023 Has Tobacco Cessation [...] use any illicit or recreational drugs? Yes Information not available 07/01/2023 Do you or have you ever used any other forms of tobacco or nicotine? No Information not available 05/19/2023 What is your level of alcohol consumption? None Information not available 05/19/2023 Are you currently employed? Yes Information not available 05/19/2023 Do you have transportation difficulties? No Information not available 07/01/2023 Are you able [...] Time Father Family history of hyperlipidem ia [email or web address] Not available 11/2022 09:48:01 Father Family history of drug abuse [email or web address] Not available 09:48:07 Father Family history of Hypertension [email or web address] Not available 07/01/2023 09:48:22 Father Family history of ischemic heart disease [email or web address] Not available 11/2022 09:48:41 Paternal Grandfather Family history of diabetes mellitus type 2 [email or web address] Not available 11/2022 09:48:13 Paternal Grandfather Family history of Hypertension [email or web address] Not available 07/01/2023 09:48:27 Paternal Grandmother Family history of diabetes mellitus type 2 [email or web address] Not available 11/2022 09:48:16 Paternal Grandmother Family history of Hypertension [email or web address] Not available 07/01/2023 09:48:29 Mother Congenital heart disease [email or web address] Not available 11/2022 09:49:06 Medical History Condition Response Hospitalizations N Emergency room visit since last appointm ent. N Gynecological History Statement/Question Response Date of Last Pap Smear Most Recent Mammogram Obstetrics History GPAL:G 0 P 0 0 0 0 Immunizations Vaccine Type Date Status Note Provider Nam e and Address Organization Details Recorded Time MMR 6 completed Nini [place] null, [employer] 06/30/2023 13:50:49 Tdap 6 completed Nini [place] null, [employer] 06/30/2023 13:50:49 varicella 2 completed Nini [place] null, [employer] 06/30/2023 13:50:49 Influenza, split virus, trivalent, preservative 6 completed Nini [place] null, [employer] 06/30/2023 13:50:49 Influenza, split virus, trivalent, preservative 2 completed Nini [place] null, [employer] 06/30/2023 13:50:50 Td (adult), 2 Lf tetanus toxoid, preservative free, adsorbed 3 completed Nini [place] null, [employer] 06/30/2023 13:50:50 Hep B, adolescent or pediatric 3 completed Nini [place] null, [employer] 06/30/2023 13:50:50 Hep B, adolescent or pediatric 2 completed Nini [place] null, [employer] 06/30/2023 13:50:50 Hep B, adolescent or pediatric 2 completed Nini [place] null, [employer] 06/30/2023 13:50:50 Past Encounters Encounter ID Performer Location Encounter Start Date Encounter Closed Date Diagnosis/Indication Diagnosis SNOMED-CT Code Diagnosis ICD10 Code Diagnosis IMO Codes Diagnosis Note [id number] Oksana Clark APRN [address] [address] 06/23/2025 14:12:13 06/23/2025 16:19:49 Tuberculosis screening status 729446342 Z11.1 334865 Patient informed to RTC in 48-72 hrs to have reading. Influenza vaccination declined 501422273 Z28.21 9023283263 Mild depression 29750088 3 F32.A 575543 History an d physical examination, annual for health maintenance 35889385 Z00.00 0850945624 Body mass index 40+ - severely obese 228149885 Z68.41 369153 Health Concerns Section Related Observation LastModified by Organization Detai ls LastModified Time None Recorded Concern Status LastModified by Organization Details LastModified Time None Recorded Payers None recorded. Notes Date Note Type Note Provider Name and Address Organization Details Recorded Time 06/23/2025 text/html Annual WellnessReported by Patient pt here today for an AWV for work and tb skin test. pt works at the [employer] for around 2 years. pt states that [...] have insurance. sent a pt case to [facility] to see if she can help. Oksana Clark APRN [address] [place], [address], [facility] [employer] 06/23/2025 15:23:16 OBGyn Episode No OBEpisode recorded.
[2025-08-22 17:06] LABS: Coronavirus 19, PCR Not Detected (NotDetected); Influenza B, PCR Not Detected (NotDetected)
[2025-08-22] MEDS: IBUPROFEN 800 MG TABLET PO (17:49)
[2025-08-22] MEDS: ALBUTEROL-HFA 90MCG/PUFF INHALER 8GM 2 PUFF IH (17:49)
[2025-08-22] MEDS: AEROCHAMBER/OPTIHALER 1 UNIT MC (17:49)
[2025-08-22] MEDS: ONDANSETRON 4MG ODT 4 MG SL (17:49)
--- NOTE | 2025-08-22 17:56 | PC.NURSE ---
Pt provided ice chips
[2025-08-22 18:25] LABS: Influenza A, PCR Detected (NotDetected)
[2025-08-22 18:43] VITALS: BP 118/72; PULSE 78; RESP 18; TEMP 36.8
== END 2025-08-22 18:44 | disposition home or self-care (01) ==
PROVIDERS: Nurse Practitioner Family; Emergency Provider Student in an Organized Health Care Education/Training Program; PCP Nurse Practitioner
DX: J10.1 Influenza due to other identified influenza virus with other respiratory manifestations (principal); R06.2 Wheezing; R51.9 Headache, unspecified; R11.0 Nausea
CPT/HCPCS: 87631; 99282; 99283; Q0162